=== PATIENT | female | born 2000 | race African-American/Black ===

== ENCOUNTER 2018-07-23 11:35 | Outpatient (CLI) | payer MEDICAID ==
--- NOTE | 2018-07-23 13:06 | Non Stress Test Report ---
Non Stress Test Datetime Report Generated by CPN: 07/23/2018 13:06 DEMOGRAPHIC EGA NST: 34.5 INDICATION Indication for Study: Ordered by Provider MONITORING Monitor Explained: Monitor Explained; Test Explained; Patient Verbalized Understanding Time on Monitor: 07/23/2018 11:46 Time off Monitor: 07/23/2018 12:52 NST Duration: 66 NST INTERVENTIONS NST Interventions: PO Hydration; Meal Given Physician Notified NST: N. Wolff cnm BABY A: [id number] BABY A Movement : Present Contraction Frequency : none FHR Baseline : 125 Accelerations : 15X15 Decelerations : None Variability : Moderate 6-25bpm NST Review: Meets Criteria for Reactive NST NST Review and Verified By : SHANNEN Persaud NST Results: Reactive NST REPORT Report Trigger: Send Report
== END 2018-07-23 13:06 | disposition home or self-care (01) ==
LOC: LC 11:35
PROVIDERS: ATTEND Obstetrics & Gynecology
DX: Z34.83 Encounter for supervision of other normal pregnancy, third trimester (principal)
CPT/HCPCS: 59025

== ENCOUNTER 2018-07-30 11:29 | Outpatient (CLI) | payer MEDICAID ==
--- NOTE | 2018-07-30 14:22 | RADIOLOGY REPORT (SQ) ---
EXAM DESCRIPTION: U/S PROFILE W/O STRESS COMPLETED DATE/TIME: 07/30/2018 2:01 pm REASON FOR STUDY: nonreactive NST COMPARISON: None. TECHNIQUE: Limited holm-scale realtime and static images of the fetus to measure specified parameter s. LIMITATIONS: None. FINDINGS: HEART RATE: 137 beats per minute. TIEN: 16.0 cm. BREATHING MOVEMENT: 2 points. MOVEMENT: 2 points. POSTURE AND TONE: 2 points. QUALITATIVE TIEN: 2 points. OTHER: Cephalic presentation. IMPRESSION: BIOPHYSICAL PROFILE: 11/27. Trimester of : Third - 28 weeks to delivery COMMENT: BREATHING MOVEMENTS: 2 POINTS: PRESENT 0 POINTS: ABSENT MOTION: 2 POINTS: PRESENT 0 POINTS: ABSENT TONE: 2 POINTS: PRESENT 0 POINTS: ABSENT AMNIOTIC FLUID VOLUME: 2 POINTS: LARGEST POCKET GREATER THAN 2 CM DEPTH. 0 POINTS: NO POCKET OF 2 CM. TECHNICAL DOCUMENTATION: JOB ID: [id number] [employer]- All Rights Reserved Reading location - IP/workstation name: [email or web address]
--- NOTE | 2018-07-30 14:25 | Non Stress Test Report ---
Non Stress Test Datetime Report Generated by CPN: 07/30/2018 14:24 DEMOGRAPHIC Test Number: 2 EGA NST: 35.5 INDICATION Indication for Study: Ordered by Provider MONITORING Monitor Explained: Monitor Explained; Test Explained; Patient Verbalized Understanding Time on Monitor: 07/30/2018 11:40 Time off Monitor: 07/30/2018 13:13 NST Duration: 93 NST INTERVENTIONS NST Interventions: None Physician Notified NST: C. Edwards,CNM BABY A: [id number] BABY A Movement : Present Contraction Frequency : none FHR Baseline : 130 Accelerations : 15X15 Decelerations : None Variability : Moderate 6-25bpm NST Review: Does Not Meet Criteria for Reactive NST NST Review and Verified By : SHANNEN Saucedo Results: Non-Reactive NST COMMENTS NST Comments: patient sent for BPP 8/8 NST REPORT Report Trigger: Send Report
== END 2018-07-30 14:20 | disposition home or self-care (01) ==
LOC: LC 11:29
PROVIDERS: ATTEND Obstetrics & Gynecology
PROC: 4A1HXCZ Monitoring of Products of Conception, Cardiac Rate, External Approach (ICD-10-PCS; principal; 2018-07-30)
DX: Z34.93 Encounter for supervision of normal pregnancy, unspecified, third trimester (principal)
CPT/HCPCS: 59025; 76819

== ENCOUNTER 2018-08-07 11:39 | Outpatient (CLI) | payer MEDICAID ==
--- NOTE | 2018-08-07 15:52 | RADIOLOGY REPORT (SQ) ---
EXAM DESCRIPTION: U/S PROFILE W/O STRESS COMPLETED DATE/TIME: 08/07/2018 3:37 pm REASON FOR STUDY: Non reactive NST COMPARISON: 07/30/2018 TECHNIQUE: Limited holm-scale realtime and static images of the fetus to measure specified parameter s. LIMITATIONS: None. FINDINGS: HEART RATE: 143 beats per minute. TIEN: 14.4 cm. BREATHING MOVEMENT: 2 points. MOVEMENT: 2 points. POSTURE AND TONE: 2 points. QUALITATIVE TIEN: 2 points. OTHER: No other significant finding. IMPRESSION: BIOPHYSICAL PROFILE: 11/27. Trimester of : Third - 28 weeks to delivery COMMENT: BREATHING MOVEMENTS: 2 POINTS: PRESENT 0 POINTS: ABSENT MOTION: 2 POINTS: PRESENT 0 POINTS: ABSENT TONE: 2 POINTS: PRESENT 0 POINTS: ABSENT AMNIOTIC FLUID VOLUME: 2 POINTS: LARGEST POCKET GREATER THAN 2 CM DEPTH. 0 POINTS: NO POCKET OF 2 CM. TECHNICAL DOCUMENTATION: JOB ID: [id number] [employer]- All Rights Reserved Reading location - IP/workstation name: [email or web address]
== END 2018-08-07 16:07 | disposition home or self-care (01) ==
LOC: LC 11:39
PROVIDERS: ATTEND Obstetrics & Gynecology
PROC: 4A1HXCZ Monitoring of Products of Conception, Cardiac Rate, External Approach (ICD-10-PCS; principal; 2018-08-07)
DX: Z36.89 Encounter for other specified antenatal screening (principal); Z3A.36 36 weeks gestation of pregnancy
CPT/HCPCS: 59025; 76819

== ENCOUNTER 2018-08-14 11:54 | Outpatient (CLI) | payer MEDICAID ==
--- NOTE | 2018-08-14 13:01 | Non Stress Test Report ---
Non Stress Test Datetime Report Generated by CPN: 08/14/2018 13:01 DEMOGRAPHIC EGA NST: 37.6 INDICATION Indication for Study: Decreased Movement Indication for Study (NST) Other: repeat from the office VITAL SIGNS Temperature - NST: 99.2 Pulse - NST: 77 RESP - NST: 15 NBPSYS NST: 116 NBPDIA NST: 74 MONITORING Monitor Explained: Monitor Explained; Test Explained; Patient Verbalized Understanding Time on Monitor: 08/14/2018 12:21 Time off Monitor: 08/14/2018 12:57 NST Duration: 36 NST INTERVENTIONS NST Interventions: PO Hydration; Reposition Patient Physician Notified NST: Dr Todd BABY A Contraction Frequency : intermittent FHR Baseline : 130 Accelerations : 15X15 Decelerations : None Variability : Moderate 6-25bpm NST Review: Meets Criteria for Reactive NST NST Review and Verified By : Sasha Camp RNC NST Results: Reactive NST REPORT Report Trigger: Send Report
== END 2018-08-14 13:00 | disposition home or self-care (01) ==
LOC: LC 11:54
PROVIDERS: ATTEND Obstetrics & Gynecology Gynecology
PROC: 4A1HXCZ Monitoring of Products of Conception, Cardiac Rate, External Approach (ICD-10-PCS; principal; 2018-08-14)
DX: O36.8130 Decreased fetal movements, third trimester, not applicable or unspecified (principal); Z3A.37 37 weeks gestation of pregnancy
CPT/HCPCS: 59025

== ENCOUNTER 2018-08-21 22:25 | Inpatient (IN) | payer MEDICAID ==
[2018-08-21] MEDS ORDERED: ACETAMINOPHEN 325 MG TABLET PO PRN (22:59)
[2018-08-21] MEDS ORDERED: MAG HYDROX/AL HYDROX/SIMETH SUSP 30 ML UDCUP PO PRN (22:59)
[2018-08-21 23:14] LABS: APPEARANCE,URINE CLEAR; BILIRUBIN,URINE NEGATIVE (NEGATIVE); COLOR,URINE YELLOW; GLUCOSE, URINE NEGATIVE (NEGATIVE); KETONES,URINE NEGATIVE (NEGATIVE); LEUKOCYTE ESTERASE,URINE NEGATIVE (NEGATIVE); NITRITE,URINE NEGATIVE (NEGATIVE); PROTEIN,URINE NEGATIVE (NEGATIVE); URINE SPECIFIC GRAVITY 1.014; UROBILINOGEN,URINE NEGATIVE mg/dL (<2.0)
[2018-08-21 23:32] LABS: URINE AMPHETAMINES SCREEN NEGATIVE; URINE BARBITURATES SCREEN NEGATIVE; URINE BENZODIAZEPINES SCREEN NEGATIVE; URINE COCAINE SCREEN NEGATIVE; URINE MARIJUANA (THC) SCREEN NEGATIVE; URINE METHADONE SCREEN NEGATIVE; URINE PHENCYCLIDINE SCREEN NEGATIVE
[2018-08-21 23:49] LABS: ABSOLUTE EOSINOPHILS # (AUTO) 0.2 10^3/uL (0.0-0.6); ABSOLUTE LYMPHOCYTES (AUTO) 2.6 10^3/uL (0.5-4.7); ABSOLUTE MONOCYTES (AUTO) 1.3 10^3/uL (0.1-1.4); BASOPHILS % (AUTO) 0.2 % (0-2); EOSINOPHILS % (AUTO) 2.3 % (0-6); HEMATOCRIT 26.2 % (36.0-47.0); HEMOGLOBIN 8.3 g/dL (12.0-15.5); LYMPHOCYTES % (AUTO) 25.7 % (13-45); MEAN CORPUSCULAR HGB CONC 31.6 g/dL (32.0-36.0); MEAN CORPUSCULAR VOLUME 67 fl (80-97); MONOCYTES % (AUTO) 12.8 % (3-13); PLATELET COUNT 211 10^3/uL (150-450); RED BLOOD COUNT 3.93 10^6/uL (3.72-5.28); RED CELL DISTRIBUTION WIDTH 15.4 % (11.5-14.0); TOTAL CELLS COUNTED % (AUTO) 100 %; WHITE BLOOD COUNT 10.2 10^3/uL (4.0-10.5)
[2018-08-21] MEDS ORDERED: DINOPROSTONE 10 MG VAGINAL INSERT.SR PV ONE (23:50)
[2018-08-21] MEDS ORDERED: RINGERS SOLUTION,LACTATED 300 ML IV ONE (23:59)
[2018-08-22] MEDS: RINGERS SOLUTION,LACTATED 1,000 ML IV PRN ×2 (02:28→18:34)
[2018-08-22] MEDS ORDERED: DINOPROSTONE 10 MG VAGINAL INSERT.SR ONE (03:26)
--- NOTE | 2018-08-22 04:16 | Admission Physical ---
Datetime Report Generated by CPN: 08/22/2018 04:15 CURRENT ADMISSION Chief Complaint: Scheduled Induction of Labor Indication for Induction: Maternal Diabetes Admit Impression : Term, Intrauterine ; No Active Labor; Intact Membranes Admit Plan: Admit to Unit; Initiate Labor Induction Protocol ALLERGIES Medication Allergies: No Medication Allergies: No Known Allergies (08/22/2018) Latex: No Latex Allergies Food Allergies: No known allergies Environmental Allergies: No known allergies OBSTETRICAL HISTORY EDC: 08/29/2018 00:00 : 2 Para: 0 Gestational Diabetes: Yes Rh Sensitization: No Incompetent Cervix: No BAILEE: No Infertility: No ART Treatment: No Uterine Anomaly: No IUGR: No Hx Previous C/S: No Macrosomia: No Hx Loss/Stillborn: No PIH: No Hx : No Placenta Previa/Abruption: No Depression/PP Depression: No PTL/PROM: No Post Hemorrhage: No Current Procedures: Ultrasound; NST Obstetrical History Comments: G1 - SAB during teens? (pt denies) G2 - Current , GDM SEE RECORDS Alcohol: No Marijuana : No Cocaine: No Other Illicit Drugs: No Cigarettes: Never Smoker. [id number] MEDICAL HISTORY Diabetes: No Diabetes Type: Gestational Diabetes Blood Transfusion: No Pulmonary Disease (Asthma, TB): No Breast Disease: No Hypertension: No Safety Sealer Surgery: No Heart Disease: No Hosp/Surgery: No Autoimmune Disorder: No Anesthetic Complications: No Kidney Disease: No Abnormal Pap Smear: No Neuro/Epilepsy: No Psychiatric Disorders: No Other Medical Diseases: No Hepatitis/Liver Disease: No Significant Family History: No Varicosities/Phlebitis: No Trauma/Violence : No Thyroid Dysfunction: No INFECTIOUS HISTORY Gonorrhea: No Genital Herpes: No Chlamydia: Yes Tuberculosis: No Syphilis: No Hepatitis: No HIV/AIDS Exposure: No Rash or Viral Illness: No HPV: No Infectious History Comments: Chlamydia - 2017, treated w/ abx PHYSICAL EXAM General: Normal HEENT: Normal Neurologic: Normal Thyroid: Normal Heart: Normal Lungs: Normal Breast: Normal Back: Normal Abdomen: Normal Genitourinary Exam: Normal Extremities: Normal DTRs: Normal Pelvic Type: Adequate Vital Signs: Reviewed; Within Normal Limits VAGINAL EXAM Dilatation: closed Effacement: thick Station: -3 Contraction Comments: irregular MEMBRANES Membranes: Intact FETUS A EGA: 39.0 Monitoring: External US FHR- Baseline: 120s Variability: Moderate 6-25bpm Accelerations: 15X15 Decelerations: None FHR Category: Category I Admit Comment: This G1 presents to L_D for a scheduled IOL secondary to GDM--on Glyburide. She is GBS Negative. PLANS FOR LABOR AND DELIVERY Labor and Delivery: None Pain Management: Epidural Feeding Preference: Formula Benefit of Breast Feed Discussed: Yes Circumcision: Yes INFORMED CONSENT Signature: with User ID: [email or web address]
[2018-08-22] MEDS ORDERED: ZOLPIDEM TARTRATE 5 MG TABLET ONE (05:08)
[2018-08-22] MEDS: ZOLPIDEM TARTRATE 5 MG TABLET PO PRN (05:12)
[2018-08-22] MEDS ORDERED: NALBUPHINE HCL INJ 10 MG/1 ML AMPULE INJ ONE (17:32)
[2018-08-22] MEDS ORDERED: OXYTOCIN/NORMAL SALINE 20 UNIT/1,000 ML RTUINJ IV PRN (17:32)
[2018-08-22] MEDS ORDERED: NALBUPHINE HCL INJ 10 MG/1 ML AMPULE ONE (17:38)
[2018-08-22] MEDS ORDERED: LIDOCAINE 1% INJ-PF (10 MG/ML) 30 ML SDV ONE (18:44)
[2018-08-22] MEDS ORDERED: MISOPROSTOL 0.2 MG TABLET ONE (18:44)
[2018-08-22] MEDS ORDERED: OXYTOCIN/NORMAL SALINE 20 UNIT/1,000 ML RTUINJ ONE (18:45)
[2018-08-22] MEDS ORDERED: EPHEDRINE SULFATE INJ 50 MG/1 ML AMPULE ONE (23:05)
[2018-08-22] MEDS ORDERED: BUPIVACAINE HCL 0.25 % INJ/PF (2.5 MG/1 ML) 30 ML VIAL ONE (23:06)
[2018-08-22] MEDS ORDERED: FENTANYL/BUPIVACAINE/NS/PF 300 MCG/150 ML RTUINJ EPI ONE (23:06)
[2018-08-23] MEDS ORDERED: ZOLPIDEM TARTRATE 5 MG TABLET ONE (03:06)
[2018-08-23] MEDS: ZOLPIDEM TARTRATE 5 MG TABLET PO PRN (03:08)
[2018-08-23] MEDS: RINGERS SOLUTION,LACTATED 1,000 ML IV PRN ×3 (03:09→14:06)
[2018-08-23] MEDS ORDERED: OXYTOCIN/NORMAL SALINE 20 UNIT/1,000 ML RTUINJ IV PRN (10:01)
[2018-08-23] MEDS ORDERED: FENTANYL/BUPIVACAINE/NS/PF 300 MCG/150 ML RTUINJ EPI ONE ×2 (14:01→19:48)
[2018-08-23] MEDS ORDERED: OXYTOCIN/NORMAL SALINE 20 UNIT/1,000 ML RTUINJ ONE (20:17)
[2018-08-24 09:28] LABS: ABSOLUTE EOSINOPHILS # (AUTO) 0.1 10^3/uL (0.0-0.6); ABSOLUTE LYMPHOCYTES (AUTO) 1.5 10^3/uL (0.5-4.7); ABSOLUTE MONOCYTES (AUTO) 1.1 10^3/uL (0.1-1.4); ABSOLUTE NEUT (AUTO) 9.9 10^3/uL (1.7-8.2); BASOPHILS % (AUTO) 0.1 % (0-2); EOSINOPHILS % (AUTO) 0.8 % (0-6); LYMPHOCYTES % (AUTO) 11.6 % (13-45); MEAN CORPUSCULAR HEMOGLOBIN 20.6 pg (27.0-33.4); MEAN CORPUSCULAR HGB CONC 30.9 g/dL (32.0-36.0); MEAN CORPUSCULAR VOLUME 67 fl (80-97); MONOCYTES % (AUTO) 8.7 % (3-13); PLATELET COUNT 189 10^3/uL (150-450); RED CELL DISTRIBUTION WIDTH 15.2 % (11.5-14.0); SEGMENTED NEUTROPHILS % (AUTO) 78.8 % (42-78); TOTAL CELLS COUNTED % (AUTO) 100 %; WHITE BLOOD COUNT 12.5 10^3/uL (4.0-10.5)
[2018-08-24] MEDS ORDERED: LIDOCAINE 2% INJ-PF (20 MG/ML) 10 ML AMPUL ONE (09:30)
[2018-08-24] MEDS ORDERED: CITRIC ACID/SODIUM CITRATE ORAL SOLN 15 ML UDCUP ONE (09:30)
[2018-08-24] MEDS ORDERED: CEFAZOLIN 2 GM/D5W RTU 2 GM/50 ML RTUPB IV ONE (09:31)
[2018-08-24] MEDS ORDERED: BUPIVACAINE HCL 0.5 % INJ/PF 30 ML SDV ONE (09:31)
[2018-08-24] MEDS ORDERED: OXYTOCIN/NORMAL SALINE 20 UNIT/1,000 ML RTUINJ ONE (09:31)
[2018-08-24] MEDS ORDERED: CARBOPROST TROMETHAMINE INJ 250 MCG/1 ML AMPULE ONE (09:31)
[2018-08-24] MEDS ORDERED: CEFAZOLIN SODIUM 2 GM in DEXTROSE 5%-WATER 50 ML IV PRN (09:33)
[2018-08-24] MEDS ORDERED: NORMAL SALINE 250 ML IV PRN (09:43)
[2018-08-24 09:45] LABS: ALANINE AMINOTRANSFERASE 19 U/L (5-35); ALBUMIN 2.5 g/dL (3.7-5.6); ALKALINE PHOSPHATASE 203 U/L (50-135); ANION GAP 10 (5-19); ASPARTATE AMINO TRANSFERASE 15 U/L (5-30); BILIRUBIN,DIRECT 0.3 mg/dL (0.0-0.4); BILIRUBIN,TOTAL 0.4 mg/dL (0.2-1.3); BLOOD UREA NITROGEN 5 mg/dL (7-20); CALCIUM 8.6 mg/dL (8.4-10.2); CARBON DIOXIDE 21 mmol/L (22-30); CHLORIDE 107 mmol/L (98-107); GLUCOSE 123 mg/dL (75-110); POTASSIUM 3.5 mmol/L (3.6-5.0); SODIUM 138.2 mmol/L (137-145); TOTAL PROTEIN 5.3 g/dL (6.3-8.2); URIC ACID 5.2 mg/dL (2.5-6.2)
[2018-08-24] MEDS ORDERED: PHENYLEPHRINE HCL INJ/PF 10 MG/1 ML SDV ONE (09:48)
[2018-08-24] MEDS ORDERED: MIDAZOLAM 2 MG/2 ML INJ ONE ×2 (09:48→10:38)
[2018-08-24] MEDS ORDERED: ONDANSETRON HCL INJ/PF 4 MG/2 ML SDV ONE (09:48)
[2018-08-24] MEDS ORDERED: OXYTOCIN 10 UNIT/ML VIAL ONE (09:48)
[2018-08-24 10:04] LABS: IRON(TIBC) 49.4 ug/dL (37-170)
[2018-08-24 10:26] LABS: ABSOLUTE RETICS # 0.074 10^6/uL (0.028-0.122); RETICULOCYTE COUNT (AUTO) 1.88 % (0.66-2.85)
[2018-08-24] MEDS ORDERED: FENTANYL CITRATE INJ/PF 100 MCG/2 ML AMPUL ONE (10:38)
[2018-08-24 10:51] LABS: FERRITIN 9.96 ng/mL (6.2-137.0)
[2018-08-24] MEDS ORDERED: PROPOFOL INJ 200 MG/20 ML VIAL IV ONE (10:52)
[2018-08-24] MEDS ORDERED: ACETAMINOPHEN 325 MG TABLET PO PRN (11:23)
[2018-08-24] MEDS ORDERED: ACETAMINOPHEN 1,000 MG/100 ML RTUPB IV PRN (11:23)
[2018-08-24] MEDS ORDERED: MEASLES,MUMPS&RUBELLA VACC/PF 0.5 ML VIAL SUBCUT PRN (11:23)
[2018-08-24] MEDS ORDERED: OXYTOCIN/NORMAL SALINE 20 UNIT/1,000 ML RTUINJ IV PRN (11:23)
[2018-08-24] MEDS ORDERED: DIPH/PERTUSS(ACELL)/TETANUS VAC/PF 0.5 ML SYR (>=10YO) IM PRN (11:23)
[2018-08-24] MEDS ORDERED: PROMETHAZINE HCL INJ 25 MG/1 ML VIAL IV PRN (11:23)
[2018-08-24] MEDS ORDERED: SIMETHICONE 80 MG TAB.CHEW PO PRN (11:23)
[2018-08-24] MEDS ORDERED: OXYCODONE-ACETAMINOPHEN 5-325 MG TABLET PO PRN (11:23)
[2018-08-24] MEDS ORDERED: MISOPROSTOL 0.1 MG TABLET PR ONE (11:44)
[2018-08-24] MEDS ORDERED: CARBOPROST TROMETHAMINE INJ 250 MCG/1 ML AMPULE IM ONE (11:44)
--- NOTE | 2018-08-24 11:46 | Brief Operative Note ---
BRIEF OPERATIVE REPORT DATE OF SURGERY: 08/24/18 TIME OF SURGERY: 10:35 PREOPERATIVE DIAGNOSIS: , 39+2ega, Failed Induction of labor, Arrest of Dilation, A pos, Anemia during , GBS negative POSTOPERATIVE DIAGNOSIS: KATIE, Macrosomia, hemorrhage due to uterine atony SURGEON: TRELL RAMIREZ FINDINGS: VMI delivered from cephalic presentation with asynclitism, Apgars 7/8, Weight 8#15oz (3990g). Time of 1035, IVF 1500ml, UOP 300ml. Normal bilateral tubes and ovaries, Hemabate 250mcg given intrauterine, Pitocin 20 units added to IV bag (total 40 units in 1 liter), Cytotec 1000mcg given [place] for uterine atony. WIll transfuse 1 unit of PRBCs and eval response COMPLICATIONS: uterine atony ESTIMATED BLOOD LOSS: 1157 TISSUE REMOVED OR ALTERED: placenta and cord sent to pathology TECHNICAL PROCEDURE: Primary Section
[2018-08-24] MEDS ORDERED: KETOROLAC TROMETHAMINE INJ/PF 30 MG/1 ML SDV ONE (12:07)
[2018-08-24] MEDS ORDERED: ACETAMINOPHEN 1,000 MG/100 ML RTUPB IV ONE (12:08)
[2018-08-24] MEDS: KETOROLAC TROMETHAMINE INJ/PF 30 MG/1 ML SDV IV SCH ×2 (12:27→20:16)
[2018-08-24] MEDS ORDERED: HYDROMORPHONE HCL INJ/PF 2 MG/ML AMPULE ONE (12:37)
[2018-08-24] MEDS: HYDROMORPHONE HCL INJ/PF 2 MG/ML AMPULE IV PRN ×2 (12:37→16:21)
--- NOTE | 2018-08-24 18:49 | Operative Report ---
Operative Report DATE OF SURGERY: 08/24/18 PREOPERATIVE DIAGNOSIS: , 39+2ega, Failed Induction of labor, Arrest of Dilation, A pos, Anemia during , GBS negative, A2GDM POSTOPERATIVE DIAGNOSIS: KATIE, Macrosomia, hemorrhage due to uterine atony OPERATION: Primary Section SURGEON: TRELL RAMIREZ ANESTHESIA: Epidural TISSUE REMOVED OR ALTERED: placenta and cord sent to pathology COMPLICATIONS: uterine atony ESTIMATED BLOOD LOSS: 1157 INTRAOPERATIVE FINDINGS: VMI delivered from cephalic presentation with asynclitism, Apgars 7/8, Weight 8#15oz (3990g). Time of 1035, IVF 1500ml, UOP 300ml. Normal bilateral tubes and ovaries, Hemabate 250mcg given intrauterine, Pitocin 20 units added to IV bag (total 40 units in 1 liter), Cytotec 1000mcg given [place] for uterine atony. WIll transfuse 1 unit of PRBCs and eval response PROCEDURE: Anesthesia provider: [Marta ESPINO, Ministerio Mathews CRNA] Urine output: [300ml] IV fluids: [1500ml] Indications: [17yo at 39+2eg presents for IOL due to A2GDM on Glyburide who was admitted for cervidil at approximately 0300 on 08/22/2018. Cervidil was removed that afternoon at approximately 1500 and then Cooks catheter was placed at approximately 1830 and pitocin initiated. ] Procedure: The patient was taken to the operating room where spinal anesthesia was obtained and found to be adequate. She was then prepped and draped in the normal sterile fashion and placed in the dorsal supine position with a leftward tilt. A Pfannenstiel skin incision was then made and carried through to the underlying layers of the fascia with the scalpel. The fascia was incised in the midline and the incision extended laterally with the Noriega scissors. The superior aspect of the fascial incision was then grasped with Rigo clamps elevated and the underlying rectus muscles dissected off [bluntly]. Attention was then turned to the inferior aspect of the fascial incision which in a similar fashion was grasped, tented up with Yaneli clamps, and the rectus muscles dissected off [bluntly]. The rectus muscles were then in the midline and the peritoneum at the amount identified and entered [bluntly]. The peritoneal incision was then extended superiorly and inferiorly with good visualization of the bladder. The bladder blade was inserted and the vesicouterine peritoneum identified grasped with Brazilian pickups and entered sharply with the Metzenbaum scissors. This incision was then extended laterally with the Metzenbaum scissors and a bladder flap created digitally. The bladder blade was then reinserted and the lower uterine segment incised in a transverse fashion with the scalpel. The uterine incision was then extended bluntly. The bladder blade was removed and the 's head was delivered from cephalic presentation atraumatically. The nose and mouth were suctioned and the cord doubly clamped and cut. And the was handed off to waiting pediatricians. The placenta was then delivered spontaneously and the uterus exteriorized and cleared of all clots and debris. The uterine incision was then repaired with 1- 0 Vicryl in a running locked fashion. A second layer of the same suture was used to obtain hemostasis via imbrication of the initial layer. The bladder flap was then repaired with 3-0 chromic in a running fashion. The uterus was returned to the patient's abdomen and Interceed was placed overlying the uterine incision to prevent adhesions. The gutters were cleared of all clots and debris. All operative sites were noted to be hemostatic. The fascia was reapproximated with 0 Vicryl in a running fashion from each lateral edge to the midline. The skin was closed with 3-0 Monocryl in a running subcuticular fashion with overlying Dermabond for additional dressing as well as wound closure. The patient tolerated the procedure well. Sponge lap needle and instrument counts are correct -2. 2 g of Ancef were given prior to skin incision. The patient was taken to the recovery area awake and in stable condition.
[2018-08-24] MEDS ORDERED: NIFEDIPINE 30 MG TAB.ER.24 PO ONE (19:00)
[2018-08-24] MEDS: DOCUSATE SODIUM 100 MG CAPSULE PO SCH (20:19)
[2018-08-24] MEDS: OXYCODONE-ACETAMINOPHEN 5-325 MG TABLET PO PRN (21:30)
[2018-08-25] MEDS: HYDROMORPHONE HCL INJ/PF 2 MG/ML AMPULE IV PRN (00:45)
[2018-08-25] MEDS: KETOROLAC TROMETHAMINE INJ/PF 30 MG/1 ML SDV IV SCH (03:42)
[2018-08-25 07:22] LABS: HEMATOCRIT 22.7 % (36.0-47.0); MEAN CORPUSCULAR HEMOGLOBIN 22.1 pg (27.0-33.4); MEAN CORPUSCULAR HGB CONC 31.9 g/dL (32.0-36.0); MEAN CORPUSCULAR VOLUME 69 fl (80-97); PLATELET COUNT 169 10^3/uL (150-450); RED BLOOD COUNT 3.29 10^6/uL (3.72-5.28); RED CELL DISTRIBUTION WIDTH 17.7 % (11.5-14.0); WHITE BLOOD COUNT 14.1 10^3/uL (4.0-10.5)
[2018-08-25 07:25] LABS: HEMOGLOBIN 7.2 g/dL (12.0-15.5)
[2018-08-25] MEDS: IBUPROFEN 800 MG TABLET PO SCH ×3 (09:18→20:36)
[2018-08-25] MEDS: DOCUSATE SODIUM 100 MG CAPSULE PO SCH ×2 (09:18→18:08)
[2018-08-25] MEDS: NIFEDIPINE 30 MG TAB.ER.24 PO SCH (09:19)
[2018-08-25] MEDS: PRENATAL VITAMIN W DHA CAPSULE PO SCH (09:27)
--- NOTE | 2018-08-25 11:08 | Delivery Summary ---
Del Sum A-C Datetime Report Generated by CPN: 08/25/2018 11:07 DELIVERY PERSONNEL DELIVERY PERSONNEL: [id number] Delivery Doctor:: Una Escalona MD Delivery Doctor:: Una Escalona MD Anesthesiologist:: Sean Lozano MD RIB CHOPPER:: Ministerio Mathews CRNA Labor and Delivery Nurse:: Monica Mercado RN Labor and Delivery Nurse:: Sharon Wells RN Tree And Shrub Worker:: Monica Mercado RN Hotel Reservationist:: Dr. Jaramillo [facility] Nurse:: Rey KUMAR RN Production Team Leader/EQUIPMENT INSPECTOR: Cate Ferrell ST Production Team Leader/EQUIPMENT INSPECTOR: Cate Ferrell ST Production Team Leader/EQUIPMENT INSPECTOR: Brenden Olivas RN Production Team Leader/EQUIPMENT INSPECTOR: Brenden Olivas, TOLL TEST WORKER MATERNAL INFORMATION Delivery Anesthesia: Epidural Medications After Delivery: Pitocin Drip 20 Units/1000ml NSS Meds After Delivery Comment: Hemabate Maternal Complications: Other Complication Details: Failed Induction LABOR SUMMARY EDC: 08/29/2018 00:00 No. Babies in Womb: 1 Attempted: No Labor Anesthesia: Epidural LABOR INFORMATION Reason for Induction: Maternal Diabetes Cervical Ripening Agents: Cervidil; Jett Balloon Oxytocin: Induction Group B Beta Strep: Negative Antibiotics # of Doses: 0 Steroids Given: None Reason Steroids Not Administered: Not Applicable MEMBRANES Membranes Rupture Method: Artificial Amniotic Fluid Color: Clear Amniotic Fluid Amount: Moderate Amniotic Fluid Odor: Normal STAGES OF LABOR Stage 3 hr: 0 Stage 3 min: 1 CSECTION DELIVERY Primary Indication: Failed Induction CSection Urgency: Non-Scheduled CSection Incidence: Primary Labor: No Labor Elective: Nonelective CSection Incision: Lower Uterine Transverse BABY A INFORMATION Delivery Date/Time: 08/24/2018 10:35 Method of Delivery: Born in Route : No : N/A Forceps: N/A Vacuum Extraction: N/A Shoulder Dystocia : No PRESENTATION/POSITION BABY A Presentation: Cephalic Cephalic Presentation: Vertex Breech Presentation: N/A PLACENTA INFORMATION BABY A Placenta Delivery Time : 08/24/2018 10:36 Placenta Method of Delivery: Manual Removal Placenta Status: Delivered SCORES BABY A Heart Rate 1 min: >100 bpm Resp Effort 1 min: Good Cry Reflex Irritability 1 min: Cough or Sneeze or Pulls Away Muscle Tone 1 min: Some Flexion of Extremities Color 1 min: Blue/Pale Resuscitation Effort 1 min: Tactile Stimulation SCORE 1 MIN: 7 Heart Rate 5 min: >100 bpm Resp Effort 5 min: Good Cry Reflex Irritability 5 min: Cough or Sneeze or Pulls Away Muscle Tone 5 min: Some Flexion of Extremities Color 5 min: Body [place], Extremities Blue SCORE 5 MIN: 8 INFORMATION BABY A Gestational Age at Delivery: 39.2 Gestational Status: Full Term- 39- 40.6 Weeks Outcome : Liveborn Infant Condition : Stable Infant Sex: Male IDENTIFICATION BABY A Infant Verification Date/Time: 08/24/2018 11:12 ID Band Number: [id number] Mother's Name Verified: Yes RN Verifying : Pam Wells RN and Oracio Mercado RN WEIGHT/LENGTH BABY A Birthweight (gm): 3990 Infant Weight (lb): 8 Infant Weight (oz): 13 Infant Length (in): 20.50 Infant Length (cm): 52.07 CORD INFORMATION BABY A No. Cord Vessels: 3 Nuchal Cord : N/A Cord Blood Taken: Yes-For Storage (Mom's Blood type +) Suction: None ASSESSMENT BABY A Complications: None Physical Findings at Delivery: Caput Succedaneum; Molding of the Head Infant Respirations: Tachypnea Skin to Skin: Yes (Annotations: IN OR) Hotel Reservationist/ALS Called : Yes Infant Care By: Rey KUMAR RN Transferred To: NICU
--- NOTE | 2018-08-25 11:45 | PDOC PROGRESS REPORT ---
Subjective-OB Progress Note for:: 08/25/18 Subjective: reports bleeding slowing, pain controlled with current meds. denies needs. Physical Exam (OB) Vital Signs: Temp Pulse Resp BP Pulse Ox 98.8 F 96 H 20 130/82 H 100 08/25/18 07:37 08/25/18 07:37 08/25/18 07:37 08/25/18 07:37 08/25/18 07:37 Intake & Output 08/24/18 08/25/18 08/26/18 06:59 06:59 06:59 Intake Total 1367 650 Output Total 3100 Balance 1367 -2450 - Dressing Removed: No Incision: Dressing, Well Approximated - Abdomen Description: Soft Hernia Present: No Fundal Description: Firm Fundal Height: u/u - u/2 - Abdominal Distension: No distension Tenderness: Tender - Extremities Lower extremities: Jaron's sign - neg Calf: Normal, Nontender Objective-Diagnostic Laboratory: 08/25/18 06:55 08/24/18 08:49 08/24/18 08/25/18 10:08 06:55 WBC 14.1 H RBC 3.29 L Hgb 7.2 L Hct 22.7 L MCV 69 L MCH 22.1 L MCHC 31.9 L RDW 17.7 H Plt Count 169 Blood Type A POSITIVE Antibody Screen NEGATIVE Assessment and Plan(PN) - Assessment and Plan (1) Arrest of dilation, delivered, current hospitalization Is this a current diagnosis for this admission?: Yes (2) hemorrhage, delivered, current hospitalization Is this a current diagnosis for this admission?: Yes (3) S/P primary low transverse Is this a current diagnosis for this admission?: Yes - Time Spent with Patient Time with patient: Less than 15 minutes Medications reviewed and adjusted accordingly: Yes - Disposition Anticipated Discharge: Home Within: within 48 hours
[2018-08-25] MEDS: OXYCODONE-ACETAMINOPHEN 5-325 MG TABLET PO PRN (15:57)
--- NOTE | 2018-08-25 16:32 | Progress Note ---
Provider Note Provider Note: on rounds, pt denied sx of anemia-no dizziness, heart palpitations, headache, ringing in the ears. declines blood transfusion.
[2018-08-26] MEDS: IBUPROFEN 800 MG TABLET PO SCH ×2 (02:33→09:05)
[2018-08-26] MEDS: DOCUSATE SODIUM 100 MG CAPSULE PO SCH (09:04)
[2018-08-26] MEDS: PRENATAL VITAMIN W DHA CAPSULE PO SCH (09:04)
[2018-08-26] MEDS: NIFEDIPINE 30 MG TAB.ER.24 PO SCH (09:05)
--- NOTE | 2018-08-26 13:45 | PDOC DISCHARGE SUMMARY ---
Addendum entered and electronically signed by MARTHA ALONSO CNM 08/26/18 13:49: Assessment and Plan(PN) - Assessment and Plan (1) Anemia affecting in third trimester Is this a current diagnosis for this admission?: Yes (2) Arrest of dilation, delivered, current hospitalization Is this a current diagnosis for this admission?: Yes (3) Failed induction of labor, delivered Is this a current diagnosis for this admission?: Yes (4) Gestational diabetes mellitus (GDM) during controlled on oral hypoglycemic therapy Is this a current diagnosis for this admission?: Yes (5) Macrosomia Is this a current diagnosis for this admission?: Yes (6) hemorrhage, delivered, current hospitalization Is this a current diagnosis for this admission?: Yes (7) hypertension Is this a current diagnosis for this admission?: Yes (8) S/P primary low transverse Is this a current diagnosis for this admission?: Yes (9) Transfusion of blood during current hospitalisation Is this a current diagnosis for this admission?: Yes - Time Spent with Patient Medications reviewed and adjusted accordingly: Yes - Disposition Anticipated Discharge: Home Within: within 24 hours Original Note: Final Diagnosis Discharge Date: 08/26/18 - POD #2, doing well, denies dizziness or SOB, ambulating w/out difficulty. s/p Primary with PPH. Rec'd 1 unit PRBC after delivery. A+, Rubella Immune - Final Diagnosis (1) Anemia affecting in third trimester Is this a current diagnosis for this admission?: Yes (2) Arrest of dilation, delivered, current hospitalization Is this a current diagnosis for this admission?: Yes (3) Failed induction of labor, delivered Is this a current diagnosis for this admission?: Yes (4) Gestational diabetes mellitus (GDM) during controlled on oral hypoglycemic therapy Is this a current diagnosis for this admission?: Yes (5) Macrosomia Is this a current diagnosis for this admission?: Yes (6) hemorrhage, delivered, current hospitalization Is this a current diagnosis for this admission?: Yes (7) hypertension Is this a current diagnosis for this admission?: Yes (8) S/P primary low transverse Is this a current diagnosis for this admission?: Yes (9) Transfusion of blood during current hospitalisation Is this a current diagnosis for this admission?: Yes Discharge Data - Discharge Medication Prescriptions: Ibuprofen [Motrin 800 mg Tablet] 800 mg PO Q8H PRN #60 tablet PRN Reason: Pain Scale Of 2 Oxycodone HCl/Acetaminophen [Percocet 5-325 mg Tablet] 1 tab PO Q4HP PRN #30 tablet PRN Reason: Pain Scale Of 3 Home Medications: Ibuprofen [Motrin 800 mg Tablet] 800 mg PO Q8H PRN #60 tablet 08/26/18 Oxycodone HCl/Acetaminophen [Percocet 5-325 mg Tablet] 1 tab PO Q4HP PRN #30 tablet 08/26/18 Reason(s) for Admission: Induction of Labor, Obstetric Complications, Gestional Diabetes Intrapartum Procedure(s): : Low Cervical, Transverse Complication(s): Hemorrhage-Uterine Atony - Pt given 1 unit PRBC - Diagnosis Test Laboratory: Temp Pulse Resp BP Pulse Ox 98.0 F 97 H 18 123/62 100 08/26/18 13:19 08/26/18 13:19 08/26/18 13:19 08/26/18 13:19 08/26/18 13:19 08/21/18 08/21/18 08/24/18 22:39 23:25 08:49 RBC 3.93 3.90 Hgb 8.3 L 8.0 L Hct 26.2 L 26.0 L Urine Opiates Screen NEGATIVE 08/25/18 06:55 RBC 3.29 L Hgb 7.2 L Hct 22.7 L Urine Opiates Screen - Discharge information/Instructions Discharge Activity: Activity As Tolerated, No Driving, No Lifting Over 10 Pounds, Pelvic Rest Discharge Diet: As Tolerated, Regular Disposition: HOME, SELF-CARE Follow up with: [facility] in: 1, Weeks - for BP and incision check
[2018-08-26 14:06] VITALS: BP 118/64
[2018-08-27] MEDS ORDERED: FERROUS SULFATE 325 MG TABLET PO SCH (10:00)
== END 2018-08-26 15:10 | disposition home or self-care (01) | DRG 787 ==
LOC: LR 22:25 → 2S 08-24 13:40
PROVIDERS: ADMIT Student in an Organized Health Care Education/Training Program; ATTEND Student in an Organized Health Care Education/Training Program
PROC: 10D00Z1 Extraction of Products of Conception, Low, Open Approach (ICD-10-PCS; principal; 2018-08-24)
PROC: 30233N1 Transfusion of Nonautologous Red Blood Cells into Peripheral Vein, Percutaneous Approach (ICD-10-PCS; 2018-08-24)
DX: O24.425 Gestational diabetes mellitus in childbirth, controlled by oral hypoglycemic drugs (principal); O72.1 Other immediate postpartum hemorrhage; O36.63X0 Maternal care for excessive fetal growth, third trimester, not applicable or unspecified; O90.81 Anemia of the puerperium; D64.9 Anemia, unspecified; O62.1 Secondary uterine inertia; O16.5 Unspecified maternal hypertension, complicating the puerperium; Z3A.39 39 weeks gestation of pregnancy; Z37.0 Single live birth
CPT/HCPCS: 1961; 36415; 36430; 80053; 80307; 81005; 82607; 82728; 82746; 82962; 83540; 83550; 83615; 84550; 85025; 85027; 85045; 86592; 86850; 86900; 86901; 86920; 87521; 88307; 94799; C1726; J0131; J0690; J1170; J1885; J2250; J2300; J2370; J2405; J2590; J2704; J3010; J3490; P9016

== ENCOUNTER 2019-04-16 17:59 | Emergency (ER) | payer MEDICAID ==
[2019-04-16] MEDS ORDERED: ALBUTEROL SULFATE 0.083% NEB 2.5 MG/3 ML AMPUL NEB ONE (19:25)
--- NOTE | 2019-04-16 19:27 | ER Document Report ---
ED Medical Screen (RME) - General Chief Complaint: Shortness Of Breath Stated Complaint: SHORTNESS OF BREATH Time Seen by Provider: 04/16/19 19:21 Mode of Arrival: Wheelchair Information source: Patient Notes: 18-year-old female presents emergency department with reports that she has been short of breath coughing with history of asthma for the past 2 weeks.. Also reports vomiting the last couple days. Also reports she is approximately 3 months . She has not had any care. She denies abdominal pain. She denies pain with void. She denies denies vaginal bleeding or vaginal discharge. [facility] I have greeted and performed a rapid initial assessment of this patient. A comprehensive ED assessment and evaluation of the patient, analysis of test results and completion of the medical decision making process will be conducted by additional ED providers. TRAVEL OUTSIDE OF THE [place] IN LAST 30 DAYS: No - Related Data Allergies/Adverse Reactions: No Known Allergies Allergy (Verified 04/16/19 19:26) Physical Exam - Vital signs Vitals: Temp Pulse Resp BP Pulse Ox 99.2 F 101 H 16 113/64 90 L 04/16/19 18:27 04/16/19 18:27 04/16/19 18:27 04/16/19 18:27 04/16/19 18:27 Course - Vital Signs Vital signs: Temp Pulse Resp BP Pulse Ox 99.2 F 101 H 16 113/64 90 L 04/16/19 18:27 04/16/19 18:27 04/16/19 18:27 04/16/19 18:27 04/16/19 18:27
[2019-04-16 20:07] LABS: ABSOLUTE BASOPHILS # (AUTO) 0.1 10^3/uL (0.0-0.2); ABSOLUTE LYMPHOCYTES (AUTO) 3.2 10^3/uL (0.5-4.7); ABSOLUTE MONOCYTES (AUTO) 1.2 10^3/uL (0.1-1.4); ABSOLUTE NEUT (AUTO) 10.9 10^3/uL (1.7-8.2); BASOPHILS % (AUTO) 0.4 % (0-2); EOSINOPHILS % (AUTO) 6.1 % (0-6); HEMATOCRIT 34.4 % (36.0-47.0); HEMOGLOBIN 11.2 g/dL (12.0-15.5); LYMPHOCYTES % (AUTO) 19.3 % (13-45); MEAN CORPUSCULAR HEMOGLOBIN 21.9 pg (27.0-33.4); MEAN CORPUSCULAR HGB CONC 32.5 g/dL (32.0-36.0); MEAN CORPUSCULAR VOLUME 67 fl (80-97); MONOCYTES % (AUTO) 7.2 % (3-13); PLATELET COUNT 278 10^3/uL (150-450); RED BLOOD COUNT 5.12 10^6/uL (3.72-5.28); RED CELL DISTRIBUTION WIDTH 15.2 % (11.5-14.0); TOTAL CELLS COUNTED % (AUTO) 100 %; WHITE BLOOD COUNT 16.4 10^3/uL (4.0-10.5)
--- NOTE | 2019-04-16 20:21 | RADIOLOGY REPORT (SQ) ---
EXAM DESCRIPTION: XR CHEST 2 VIEWS COMPLETED DATE/TME: 04/16/2019 19:26 CLINICAL HISTORY: 18 years Female cough sob COMPARISON: 08/24/2010. FINDINGS: The cardiomediastinal silhouette appears unremarkable. No consolidating infiltrates or pleural effusions. No pneumothorax. IMPRESSION: No acute abnormality is identified.
[2019-04-16 20:26] LABS: A TYPE INFLUENZA AG NEGATIVE (NEGATIVE); B INFLUENZA AG NEGATIVE (NEGATIVE)
[2019-04-16 20:26] LABS: ALBUMIN 3.9 g/dL (3.5-5.0); ALKALINE PHOSPHATASE 75 U/L (38-126); ANION GAP 13 (5-19); ASPARTATE AMINO TRANSFERASE 16 U/L (14-36); BILIRUBIN,DIRECT 0.3 mg/dL (0.0-0.4); BILIRUBIN,TOTAL 0.3 mg/dL (0.2-1.3); BLOOD UREA NITROGEN 4 mg/dL (7-20); CALCIUM 9.8 mg/dL (8.4-10.2); CARBON DIOXIDE 21 mmol/L (22-30); CHLORIDE 104 mmol/L (98-107); GLUCOSE 88 mg/dL (75-110); POTASSIUM 3.5 mmol/L (3.6-5.0); TOTAL PROTEIN 7.2 g/dL (6.3-8.2)
[2019-04-16 21:30] LABS: APPEARANCE,URINE CLEAR; BILIRUBIN,URINE NEGATIVE (NEGATIVE); COLOR,URINE YELLOW; GLUCOSE, URINE NEGATIVE (NEGATIVE); KETONES,URINE 80 mg/dL (NEGATIVE); PROTEIN,URINE 30 mg/dL (NEGATIVE); URINE SPECIFIC GRAVITY 1.017
[2019-04-17] MEDS ORDERED: IPRATROPIUM/ALBUTEROL 0.5-2.5 MG/3 ML AMPUL NEB ONE ×2 (01:20→01:22)
[2019-04-17] MEDS ORDERED: NORMAL SALINE 1000 ML 1,000 ML IV ONE (01:22)
[2019-04-17] MEDS ORDERED: DIPHENHYDRAMINE HCL 50 MG/ML VIAL IV ONE (01:22)
[2019-04-17] MEDS ORDERED: METOCLOPRAMIDE HCL INJ/PF 10 MG/2 ML SDV IV ONE (01:22)
--- NOTE | 2019-04-17 01:24 | ER Document Report ---
ED General - General Chief Complaint: Breathing Difficulty Stated Complaint: SHORTNESS OF BREATH Time Seen by Provider: 04/16/19 19:21 Mode of Arrival: Wheelchair Notes: Patient is a 18-year-old female that comes to the emergency department for chief complaint of upper respiratory infection for the past 2 weeks. She states over the past 3 days she has gotten much worse with wheezing and shortness of breath and also vomiting multiple times a day. She denies abdominal pain however, she states she just vomits if she eats or take something. She states she had the same problem in her first , she is G2, P1 at 12 weeks gestation by last menstrual period. She denies vaginal bleeding, flank pain. She does report nonproductive cough, states she has a history of asthma as a child but does not require albuterol as an adult. She denies any daily prescribed medications or medical history otherwise. at bedside. TRAVEL OUTSIDE OF THE [place] IN LAST 30 DAYS: No - Related Data Allergies/Adverse Reactions: No Known Allergies Allergy (Verified 04/16/19 19:26) Past Medical History - General Information source: Patient - Social History Smoking Status: Never Smoker Chew tobacco use (# tins/day): No Frequency of alcohol use: None Drug Abuse: Marijuana Lives with: Family Family History: Reviewed & Not Pertinent Patient has suicidal ideation: No Patient has homicidal ideation: No - Immunizations Immunizations up to date: Yes Hx Diphtheria, Pertussis, Tetanus Vaccination: Yes Review of Systems - Review of Systems Constitutional: See HPI EENT: See HPI Cardiovascular: No symptoms reported Respiratory: See HPI Gastrointestinal: No symptoms reported Genitourinary: No symptoms reported Female Genitourinary: See HPI Musculoskeletal: No symptoms reported Skin: No symptoms reported Hematologic/Lymphatic: No symptoms reported Neurological/Psychological: No symptoms reported Physical Exam - Vital signs Vitals: Temp Pulse Resp BP Pulse Ox 99.2 F 101 H 16 113/64 90 L 04/16/19 18:27 04/16/19 18:27 04/16/19 18:27 04/16/19 18:27 04/16/19 18:27 - Notes Notes: GENERAL: Alert, interacts well. No acute distress. HEAD: Normocephalic, atraumatic. EYES: Pupils equal, round, and reactive to light. Extraocular movements intact. ENT: Oral mucosa dry, tongue midline. Oropharynx with minimal erythema. Airway patent. Very congested, nontender sinuses no nasal septal hematoma, TM's intact. NECK: Full range of motion. Supple. Trachea midline. LUNGS: A few scattered expiratory wheezes, occasional congested cough. No tachypnea or signs of distress HEART: Regular rate and rhythm. No murmur ABDOMEN: Soft, non-tender. Non-distended. EXTREMITIES: Moves all 4 extremities spontaneously. No edema, normal radial and dorsalis pedis pulses bilaterally. No cyanosis. BACK: no cervical, thoracic, lumbar midline tenderness. No saddle anesthesia, normal distal neurovascular exam. Moves all extremities in full range of motion. NEUROLOGICAL: Alert and oriented x3. Normal speech. Cranial nerves II through XII grossly intact. PSYCH: Normal affect, normal mood. SKIN: Warm, dry, normal turgor. No rashes or lesions noted. Course - Re-evaluation Re-evalutation: Reportedly patient was tachycardic at 101 with oxygen saturation of 90% initially. On my evaluation she does have some expiratory wheezes but her lungs are mostly clear. She speaks in full sentences without tachypnea. She was given an additional treatment, IV fluids, and reevaluated. Wheezing completely resolved. Patient does have some congestion and occasional cough but she is otherwise very well-appearing. She is denying abdominal pain, flank pain, or vaginal bleeding. test is positive. She denies nausea after treatment, she was able to tolerate p.o. without any difficulty. Chest x-ray negative, CBC shows leukocytosis with unremarkable hemoglobin, work- up consistent with dehydration especially in the urine. Chemistry nonspecific. Overall presentation is consistent with a viral illness, no pneumonia is noted. Discussed all results with patient Patient was ambulated and had normal oxygen saturation. Other than her upper respiratory symptoms she is very well-appearing. Patient called me back into the room. She states she still does not feel great. She states she hurts all over, is congested, and is coughing. I discussed with patient, asked if I could help her not on his way, we decided to give her lactated Ringer's to help her feel better generally and Tylenol. After this vit als excellent, no additional complaints, discharged with follow-up instructions and return precautions. Patient and stated understanding and agreement with plan. - Vital Signs Vital signs: Temp Pulse Resp BP Pulse Ox 98.2 F 85 16 112/66 100 04/17/19 06:22 04/17/19 06:22 04/17/19 06:22 04/17/19 06:22 04/17/19 06:22 - Laboratory Result Diagrams: 04/16/19 19:50 04/16/19 19:50 Laboratory results interpreted by me: 04/16/19 04/16/19 04/16/19 19:50 19:50 20:52 WBC 16.4 H Hgb 11.2 L Hct 34.4 L MCV 67 L MCH 21.9 L RDW 15.2 H Eos % (Auto) 6.1 H Absolute Neuts (auto) 10.9 H Absolute Eos (auto) 1.0 H Potassium 3.5 L Carbon Dioxide 21 L BUN 4 L Creatinine 0.46 L Beta HCG, Quant 84124.00 H Urine Protein 30 H Urine Ketones 80 H Urine Blood SMALL H Urine Urobilinogen 4.0 H Discharge - Discharge Clinical Impression: Wheezing, Cough, Vomiting affecting , Dehydration Upper respiratory infection Qualifiers: URI type: unspecified URI Qualified Code(s): J06.9 - Acute upper respiratory infection, unspecified Condition: Stable Disposition: HOME, SELF-CARE Additional Instructions: Your evaluation is consistent with an upper respiratory infection. This has caused some wheezing, use the albuterol inhaler as prescribed every 4-6 hours. Use the spacer with this. You have been prescribed Reglan and Benadryl to take as needed for nausea as well. Drink plenty of fluids, start with bland food, slowly progress. Follow closely with primary care for additional evaluation and management. Come back if you worsen including difficulty breathing, fevers, uncontrolled vomiting, or any other concerning symptoms. Prescriptions: Diphenhydramine HCl 1 - 2 tab PO Q6H PRN #30 tablet PRN Reason: nausea Albuterol Sulfate [Proair HFA Inhalation Aerosol 8.5 gm MDI] 2 puff IH Q4H PRN #1 mdi PRN Reason: Metoclopramide HCl [Reglan] 5 mg PO ASDIR PRN #30 tablet PRN Reason:
[2019-04-17] MEDS ORDERED: ALBUTEROL SULFATE HFA (90 MCG/PUFF) 8 GM MDI (1 MDI/ER DISP) IH ONE (03:52)
[2019-04-17] MEDS ORDERED: RINGERS SOLUTION,LACTATED 1,000 ML IV ONE (05:14)
[2019-04-17] MEDS ORDERED: ACETAMINOPHEN 325 MG TABLET PO ONE (05:14)
[2019-04-17 06:23] VITALS: BP 112/66
== END 2019-04-17 06:22 | disposition home or self-care (01) ==
LOC: ER 17:59
DX: O26.91 Pregnancy related conditions, unspecified, first trimester (principal); J06.9 Acute upper respiratory infection, unspecified; R06.00 Dyspnea, unspecified; E86.0 Dehydration; R06.2 Wheezing; O21.9 Vomiting of pregnancy, unspecified; Z3A.12 12 weeks gestation of pregnancy
CPT/HCPCS: 94640 ×2; 99285; 96361; 96374; 96375; 36415; 84702; 85025; 80053; 81001; 87804; 71046; J3490 ×2; J1200; J2765; J7030; J7120; J7620

== ENCOUNTER 2019-04-23 18:29 | Observation (INO) | payer MEDICAID ==
[2019-04-23] MEDS ORDERED: ALBUTEROL SULFATE 0.083% NEB 2.5 MG/3 ML AMPUL NEB ONE ×2 (20:07→20:09)
--- NOTE | 2019-04-23 20:11 | ER Document Report ---
HPI - HPI Time Seen by Provider: 04/23/19 20:02 Notes: Patient is a 18-year-old female G2, P1 approximately 13 weeks who presents complaining of continued nasal congestion/discharge and dry cough. Patient states her symptoms have been ongoing for the past 3 weeks. She was evaluated about a week ago here in the emergency department was diagnosed with a viral illness with an unremarkable work-up at that time. She does continue to use her inhaler on occasion as she has a history of asthma. Denies drug allergies. She is able to eat and drink without difficulty. She is urinating normally. Denies any headache, fever, neck pain, sore throat, chest pain, palpitations, syncope, shortness of breath, dyspnea, abdominal pain, nausea/vomiting/diarrhea, urinary retention, dysuria, hematuria, or rash. No vaginal bleeding, odor, or discharge. - ROS Systems Reviewed and Negative: Yes All other systems reviewed and negative - REPRODUCTIVE Reproductive: REPORTS: : Past Medical History - Social History Smoking Status: Never Smoker Family History: Reviewed & Not Pertinent Pulmonary Medical History: Reports: Hx Asthma - Immunizations Immunizations up to date: Yes Hx Diphtheria, Pertussis, Tetanus Vaccination: Yes Vertical Provider Document - CONSTITUTIONAL Agree With Documented VS: Yes Notes: PHYSICAL EXAMINATION: GENERAL: Well-appearing, well-nourished and in no acute distress. A&Ox4. Answers questions appropriately. Moves comfortably w/o notable distress HEAD: Atraumatic, normocephalic. EYES: Pupils equal round and reactive to light, extraocular movements intact, sclera anicteric, conjunctiva are normal. ENT: Nares patent and with clear discharge. oropharynx no erythema without exudates. No tonsilar hypertrophy without erythema or exudate. No palatine shift. Uvula midline. No tongue protrusion. No drooling, hoarseness, or airway compromise. Moist mucous membranes. No sinus tenderness. NECK: Normal range of motion, supple without lymphadenopathy. No rigidity/meningismus. LUNGS: Scant expiratory wheeze at the bases bilaterally. No retractions HEART: Regular rate and rhythm without murmurs, rubs, gallops. ABDOMEN: Soft, nontender, nondistended abdomen. No guarding, no rebound. Normal bowel sounds present. No CVA tenderness bilaterally. NEUROLOGICAL: Normal speech, normal gait. PSYCH: Normal mood, normal affect. SKIN: Warm, Dry, normal turgor, no rashes or lesions noted. - INFECTION CONTROL TRAVEL OUTSIDE OF THE [place] IN LAST 30 DAYS: No Course - Re-evaluation Re-evalutation: 04/23/19 20:08 Patient is an afebrile, well-hydrated, 18yo female who presents to the emergency department with a continued cough x3 weeks while being . Vitals are acceptable without significant tachycardia, tachypnea, or hypoxia. PE is otherwise unremarkable. She is nontoxic-appearing and is tolerating p.o. without difficulty. Lungs are clear to auscultation bilaterally. No labs or imaging warranted at this time. Pt received an albuterol neb treatment. Low suspicion for any meningitis, sepsis, peritonsillar/pharyngeal abscess, respiratory compromise, Zeke's, or other emergent systemic condition at this time. Patient is aware this condition can change from initial presentation and she needs to monitor symptoms closely. I will send her home with a prescription for Zithromax, category B, due to the prolonged symptomatology and being . Conservative measures otherwise for symptoms. Recheck with your PCM/OBGYN in 2-3 days. Return to the ED with any worsening/concerning symptoms otherwise as reviewed in discharge. Patient is in agreement. - Vital Signs Vital signs: Temp Pulse Resp BP Pulse Ox 99.9 F 97 18 136/74 H 91 L 04/23/19 18:39 04/23/19 18:39 04/23/19 18:39 04/23/19 18:39 04/23/19 18:39 Discharge - Discharge Clinical Impression: Cough Condition: Stable Disposition: HOME, SELF-CARE Additional Instructions: Maintain adequate fluid intake tylenol as needed alternating every 3 hours for fever/body ache Humidified air may help Wash your hands regularly Wear a mask when coughing F/u: with your PCM/AUTOMATION OPERATOR in 2-3 days for a recheck Return to the ED with any fever, altered mental status/behavior, chest pain, palpitations, syncope, headache, neck pain/stiffness, shortness of breath, chest pains, wheezing, drooling, trouble swallowing/breathing, abdominal pain, n/v/d, rash, or worsening/concerning symptoms otherwise. Forms: Elevated Blood Pressure
--- NOTE | 2019-04-23 20:13 | ER Document Report ---
ED Medical Screen (RME) - General Chief Complaint: Congestion Stated Complaint: BODY PAIN,COUGH,CONGESTION Time Seen by Provider: 04/23/19 20:02 TRAVEL OUTSIDE OF THE [place] IN LAST 30 DAYS: No - HPI Notes: 04/23/19 20:12 Patient is a 18-year-old female G2, P1 approximately 13 weeks who presents complaining of continued nasal congestion/discharge and dry cough. Patient states her symptoms have been ongoing for the past 3 weeks. She was evaluated about a week ago here in the emergency department was diagnosed with a viral illness with an unremarkable work-up at that time. She does continue to use her inhaler on occasion as she has a history of asthma. Denies drug allergies. She is able to eat and drink without difficulty. She is urinating normally. Denies any headache, fever, neck pain, sore throat, chest pain, palpitations, syncope, shortness of breath, dyspnea, abdominal pain, nausea/vomiting/diarrhea, urinary retention, dysuria, hematuria, or rash. No vaginal bleeding, odor, or discharge. Pt mildly hypoxic at 91%. Rechecked and was 91-92% on RA. Neb treatments ordered and CXR. I have treated and performed a rapid initial assessment of this patient. A comprehensive ED assessment and evaluation of the patient, analysis of test results and completion of medical decision making process will be conducted by additional ED providers. PHYSICAL EXAMINATION: GENERAL: Well-appearing, well-nourished and in no acute distress. A&Ox4. Answers questions appropriately. Lungs: wheezing b/l base. No retractions. - Related Data Allergies/Adverse Reactions: No Known Allergies Allergy (Verified 04/23/19 20:02) Past Medical History - Social History Frequency of alcohol use: None Drug Abuse: None Pulmonary Medical History: Reports: Hx Asthma - Immunizations Immunizations up to date: Yes Hx Diphtheria, Pertussis, Tetanus Vaccination: Yes Physical Exam - Vital signs Vitals: Temp Pulse Resp BP Pulse Ox 99.9 F 97 18 136/74 H 91 L 04/23/19 18:39 04/23/19 18:39 04/23/19 18:39 04/23/19 18:39 04/23/19 18:39 Course - Vital Signs Vital signs: Temp Pulse Resp BP Pulse Ox 99.9 F 97 18 136/74 H 91 L 04/23/19 18:39 04/23/19 18:39 04/23/19 18:39 04/23/19 18:39 04/23/19 18:39
[2019-04-23 20:45] LABS: ABSOLUTE EOSINOPHILS # (AUTO) 1.1 10^3/uL (0.0-0.6); ABSOLUTE LYMPHOCYTES (AUTO) 3.3 10^3/uL (0.5-4.7); ABSOLUTE MONOCYTES (AUTO) 1.1 10^3/uL (0.1-1.4); ABSOLUTE NEUT (AUTO) 9.5 10^3/uL (1.7-8.2); BASOPHILS % (AUTO) 0.3 % (0-2); EOSINOPHILS % (AUTO) 7.6 % (0-6); HEMATOCRIT 32.8 % (36.0-47.0); HEMOGLOBIN 10.7 g/dL (12.0-15.5); LYMPHOCYTES % (AUTO) 21.7 % (13-45); MEAN CORPUSCULAR HEMOGLOBIN 21.8 pg (27.0-33.4); MEAN CORPUSCULAR HGB CONC 32.6 g/dL (32.0-36.0); MEAN CORPUSCULAR VOLUME 67 fl (80-97); MONOCYTES % (AUTO) 7.3 % (3-13); PLATELET COUNT 381 10^3/uL (150-450); RED BLOOD COUNT 4.91 10^6/uL (3.72-5.28); RED CELL DISTRIBUTION WIDTH 15.1 % (11.5-14.0); SEGMENTED NEUTROPHILS % (AUTO) 63.1 % (42-78); TOTAL CELLS COUNTED % (AUTO) 100 %
[2019-04-23 20:46] LABS: VENOUS BLOOD BASE EXCESS -1.7 mmol/L; VENOUS BLOOD HCO3 21.9 mmol/L (20-32); VENOUS BLOOD PCO2 33.7 mmHg (35-63); VENOUS BLOOD PH 7.43 (7.30-7.42)
[2019-04-23 21:11] LABS: ALBUMIN 3.5 g/dL (3.5-5.0); ALKALINE PHOSPHATASE 74 U/L (38-126); ANION GAP 10 (5-19); ASPARTATE AMINO TRANSFERASE 14 U/L (14-36); BILIRUBIN,DIRECT 0.2 mg/dL (0.0-0.4); BILIRUBIN,TOTAL 0.2 mg/dL (0.2-1.3); BLOOD UREA NITROGEN 3 mg/dL (7-20); CALCIUM 9.4 mg/dL (8.4-10.2); CARBON DIOXIDE 22 mmol/L (22-30); CHLORIDE 106 mmol/L (98-107); GLUCOSE 88 mg/dL (75-110); POTASSIUM 3.8 mmol/L (3.6-5.0); TOTAL PROTEIN 6.8 g/dL (6.3-8.2)
[2019-04-23] MEDS ORDERED: CEFTRIAXONE INJ 1000 MG VIAL IV ONE (21:58)
[2019-04-23] MEDS ORDERED: METHYLPREDNISOLONE INJ 125 MG/2 ML SDV IV ONE (21:58)
[2019-04-23] MEDS ORDERED: METOCLOPRAMIDE HCL INJ/PF 10 MG/2 ML SDV IV ONE (21:59)
[2019-04-23] MEDS ORDERED: DEXTROSE 5%-LACTATED RINGERS 1,000 ML IV ONE (21:59)
--- NOTE | 2019-04-23 22:07 | ER Document Report ---
ED General - General Chief Complaint: Congestion Stated Complaint: BODY PAIN,COUGH,CONGESTION Time Seen by Provider: 04/23/19 20:02 TRAVEL OUTSIDE OF THE [place] IN LAST 30 DAYS: No - HPI Notes: Ms. Strauss is a 26-year-old female 2 para 1 at about 13 weeks EGA seen now for her second visit in 3 days for coughing wheezing and intermittent posttussive emesis. She was afebrile and oxygenating normally at her prior visit and was sent out with a metered-dose inhaler. We note she has had a longstanding history of chronic intermittent asthma with as needed use of inhaler. She is a former smoker. She is exposed to secondhand smoke from her boyfriend. States that she is never been hospitalized for asthma. Reports no problems with her asthma during her first . Intermittent tactile fever for several days. She is coughing up scant amounts of green sputum. She tends to vomit during paroxysms of coughing. Past medical history is otherwise unremarkable. - Related Data Allergies/Adverse Reactions: No Known Allergies Allergy (Verified 04/23/19 20:02) Past Medical History - General Information source: Patient, Relative - Social History Smoking Status: Former Smoker Frequency of alcohol use: None Drug Abuse: None Family History: Reviewed & Not Pertinent Patient has suicidal ideation: No Patient has homicidal ideation: No Pulmonary Medical History: Reports: Hx Asthma Past Surgical History: Reports: Hx Section - Immunizations Immunizations up to date: Yes Hx Diphtheria, Pertussis, Tetanus Vaccination: Yes Review of Systems - Review of Systems Notes: Constitutional: Negative for fever. HENT: Negative for sore throat. Eyes: Negative for visual changes. Cardiovascular: Negative for chest pain. Respiratory: As per HPI. Gastrointestinal: As per HPI. Genitourinary: Negative for dysuria. Musculoskeletal: Negative for back pain. Skin: Negative for rash. Neurological: Negative for headaches, weakness or numbness. 10 point ROS negative except as marked above and in HPI. Physical Exam - Vital signs Vitals: Temp Pulse Resp BP Pulse Ox 99.9 F 97 18 136/74 H 91 L 04/23/19 18:39 04/23/19 18:39 04/23/19 18:39 04/23/19 18:39 04/23/19 18:39 - Notes Notes: GENERAL: Slender female appearing approximately her stated age who is coughing continuously and has audible wheezes. SKIN: Good turgor no rashes. HEAD: Normocephalic atraumatic. EYES: PERRLA. EOMI. Conjunctivae injected bilaterally. EARS: CANALS AND TMS CLEAR. NOSE: CLEAR. MOUTH: Moist mucosa. Good dentition. No stridor or edema. No drooling. NECK: Supple. No masses or thyromegaly. No adenopathy. Carotids 2+ without bruits. No JVD. BACK: Symmetrical without tenderness. CHEST: Mildly tachypneic. Minimal use of accessory muscles respiration. Patient has diffuse end expiratory wheezes and scattered rhonchi bilaterally right greater than left.. HEART: Regular rhythm. No murmur gallop or rub. ABDOMEN: Soft nontender without masses, organomegaly or rebound. Bowel sounds normally active. No bruits. GENITALIA: Deferred. EXTREMITIES: No edema. No calf tenderness. Cap refill less than 1.5 seconds. Dorsalis pedis and posterior tibial pulses 3+ and symmetrical. NEUROLOGICAL: GCS 15. Alert and oriented x3. Normal gait. Fluent speech. Cranial nerves II through XII intact. Sensorimotor and cerebellar normal. Normal tone. PSYCHIATRIC: Appropriate affect. Course - Re-evaluation Re-evalutation: 04/23/19 22:08 Rapid influenza screen is negative. Patient appears to have minimal infiltrate right perihilar area. Abdomen to give her some Rocephin IV and also Solu-Medrol 125 mg. Was placed on low-flow nasal O2 and we will give her some Reglan for nausea. She is also receiving a liter of D5LR. Unless her wheezes cleared substantially within the next 90 minutes with additional nebulizer treatments and her oxygenation is entirely normal she will need to be admitted. 04/24/19 01:13 On recheck patient is still wheezing. Her oxygenation is satisfactory but she still coughing a lot. She had additional nebulizer treatments and her IV Rocephin and IV steroids. I recommend admission for her and discussed her case with the on-call hospitalist Dr. Geraldo Nuno who is agreeable to admit. Patient has decided however that she does not want to stay. I told her that if she chooses not to remain in the hospital for admission as she will + out a AMA. I have explained to her that there is a risk to her developing fetus and to herself if she chooses not to get adequate care for her pneumonia and asthma exacerbation at this time. She is currently arguing over this with her family members. We will await her decision at this time. I believe she has adequate capacity to decline care although this is clearly not in her best interest. 04/24/19 01:48 After further discussion with her family patient is now agreeable to admission and Dr. Nuno will admit to telemetry observation. - Vital Signs Vital signs: Temp Pulse Resp BP Pulse Ox 99 F 104 H 19 124/80 100 04/24/19 01:46 04/23/19 21:40 04/24/19 01:43 04/24/19 01:43 04/24/19 01:43 - Laboratory Result Diagrams: 04/23/19 20:30 04/23/19 20:30 Laboratory results interpreted by me: 04/23/19 04/23/19 04/23/19 20:30 20:30 20:30 WBC 15.0 H Hgb 10.7 L Hct 32.8 L MCV 67 L MCH 21.8 L RDW 15.1 H Eos % (Auto) 7.6 H Absolute Neuts (auto) 9.5 H Absolute Eos (auto) 1.1 H Carbonic Acid ABG pH ABG pCO2 ABG pO2 VBG pH 7.43 H VBG pCO2 33.7 L BUN 3 L Creatinine 0.45 L 04/23/19 23:00 WBC Hgb Hct MCV MCH RDW Eos % (Auto) Absolute Neuts (auto) Absolute Eos (auto) Carbonic Acid 0.92 L ABG pH 7.47 H ABG pCO2 30.6 L ABG pO2 67.6 L VBG pH VBG pCO2 BUN Creatinine - Diagnostic Test Radiology results interpreted by me: 04/23/19 22:07 I reviewed the chest x-ray and patient appears to have a patchy right perihilar infiltrate. No pneumothorax. Discharge - Discharge Clinical Impression: with 13 completed weeks gestation Asthma exacerbation Qualifiers: Asthma severity: moderate Asthma persistence: unspecified Qualified Code(s): J45.901 - Unspecified asthma with (acute) exacerbation Right middle lobe pneumonia Qualifiers: Pneumonia type: due to unspecified organism Qualified Code(s): J18.9 - Pneumonia, unspecified organism Condition: Fair Disposition: ADMITTED OBSERVATION Admitting Provider: Yaakov (Hospitalist) Unit Admitted: Telemetry
--- NOTE | 2019-04-23 22:13 | RADIOLOGY REPORT (SQ) ---
Chest 2 view on 04/23/2019 9:16 PM CLINICAL INDICATION: Cough COMPARISON: 04/16/2019 FINDINGS: There is mild developing patchy right middle lobe opacity suggesting early right middle lobe pneumonia. The lungs are otherwise clear. Cardiac, hilar and mediastinal contours are within normal limits. No bony abnormality is noted. IMPRESSION: Findings suggesting early right middle lobe pneumonia.
[2019-04-23] MEDS ORDERED: IPRATROPIUM/ALBUTEROL 0.5-2.5 MG/3 ML AMPUL NEB ONE (23:41)
[2019-04-24 00:50] LABS: ARTERIAL BLOOD BASE EXCESS -1.1 mmol/L; ARTERIAL BLOOD FIO2 ROOM AIR; ARTERIAL BLOOD H2CO3 0.92 mmol/L (1.05-1.35); ARTERIAL BLOOD HCO3 21.9 mmol/L (20-24); ARTERIAL BLOOD O2 SATURATION 94.8 % (94-98); ARTERIAL BLOOD PCO2 30.6 mmHg (35-45); ARTERIAL BLOOD PH 7.47 (7.35-7.45); ARTERIAL BLOOD PO2 67.6 mmHg (80-100); ARTERIAL BLOOD TOTAL CO2 22.8 mmol/L (21-25)
[2019-04-24] MEDS ORDERED: IPRATROPIUM/ALBUTEROL 0.5-2.5 MG/3 ML AMPUL NEB PRN (02:38)
[2019-04-24] MEDS ORDERED: ACETAMINOPHEN 325 MG TABLET PO PRN (02:38)
[2019-04-24] MEDS ORDERED: INFLUENZA QUAD (6MOS+) 2019-20 VAC 0.5 ML SYR IM ONE (04:07)
--- NOTE | 2019-04-24 05:42 | PDOC H&P ---
History of Present Illness Admission Date/PCP: 04/24/19 01:54 Patient complains of: Shortness of breath History of Present Illness: BRITTA SHARPE is a 18 year old female with a past medical history of asthma, GERD, tobacco, G2, P1 13 weeks EGA presents with 5 days of progressive shortness of breath, wheeze and paroxysms of cough. She is found to have a Right-sided infiltrate on chest x-ray, leukocytosis and hypoxia by ABG. She receives albuterol, Atrovent, Rocephin and referred to the hospitalist for admission. Patient denies previous intubation or hospitalization for exacerbation of asthma. She denies infectious contacts but admits to boyfriends secondhand smoke as trigger for asthma. Past Medical History Pulmonary Medical History: Reports: Asthma, Bronchitis Past Surgical History Past Surgical History: Reports: Section Social History Information Source: Patient Lives with: Spouse/Significant other Smoking Status: Former Smoker - Advance Directive Resuscitation Status: Full Code Family History Family History: Hypertension Parental Family History Reviewed: Yes Children Family History Reviewed: Yes Sibling(s) Family History Reviewed.: Yes Medication/Allergy Home Medications: Ferrous Sulfate [Feosol 325 mg Tablet] 325 mg PO DAILY #30 tablet 08/26/18 Ibuprofen [Motrin 800 mg Tablet] 800 mg PO Q6A #60 tablet 08/26/18 Oxycodone HCl/Acetaminophen [Percocet 5-325 mg Tablet] 1 tab PO Q4HP PRN #30 tablet 08/26/18 Albuterol Sulfate [Proair HFA Inhalation Aerosol 8.5 gm MDI] 2 puff IH Q4H PRN #1 mdi 04/17/19 Diphenhydramine HCl 1 - 2 tab PO Q6H PRN #30 tablet 04/17/19 Metoclopramide HCl [Reglan] 5 mg PO ASDIR PRN #30 tablet 04/17/19 Allergies/Adverse Reactions: No Known Allergies Allergy (Verified 04/23/19 20:02) Review of Systems Constitutional: ABSENT: chills, fever(s), headache(s), weight gain, weight loss Eyes: ABSENT: visual disturbances Ears: ABSENT: hearing changes Cardiovascular: PRESENT: as per HPI. ABSENT: chest pain, dyspnea on exertion, edema, orthropnea, palpitations Respiratory: PRESENT: as per HPI, cough, dyspnea, sputum. ABSENT: hemoptysis Gastrointestinal: ABSENT: abdominal pain, constipation, diarrhea, hematemesis, hematochezia, nausea, vomiting Genitourinary: ABSENT: dysuria, hematuria Musculoskeletal: ABSENT: joint swelling Integumentary: ABSENT: rash, wounds Neurological: ABSENT: abnormal gait, abnormal speech, confusion, dizziness, focal weakness, syncope Psychiatric: ABSENT: anxiety, depression, homidical ideation, suicidal ideation Endocrine: ABSENT: cold intolerance, heat intolerance, polydipsia, polyuria Hematologic/Lymphatic: ABSENT: easy bleeding, easy bruising Physical Exam Vital Signs: Temp Pulse Resp BP Pulse Ox 98 F 87 18 123/87 H 93 04/24/19 03:32 04/24/19 03:32 04/24/19 03:32 04/24/19 03:32 04/24/19 03:32 Intake & Output 04/22/19 04/23/19 04/24/19 11:59 11:59 11:59 Intake Total 1000 Balance 1000 Weight 72.1 kg General appearance: PRESENT: cooperative, mild distress, well-developed, well- nourished Head exam: PRESENT: atraumatic, normocephalic Eye exam: PRESENT: conjunctiva pink, EOMI, PERRLA. ABSENT: scleral icterus Ear exam: PRESENT: normal external ear exam Mouth exam: PRESENT: moist, tongue midline Neck exam: ABSENT: carotid bruit, JVD, lymphadenopathy, thyromegaly Respiratory exam: PRESENT: accessory muscle use, prolonged expiratory phas, rales, retraction, wheezes. ABSENT: rhonchi Cardiovascular exam: PRESENT: RRR. ABSENT: diastolic murmur, rubs, systolic murmur Pulses: PRESENT: normal dorsalis pedis pul Vascular exam: PRESENT: normal capillary refill GI/Abdominal exam: PRESENT: normal bowel sounds, soft. ABSENT: distended, guarding, mass, organolmegaly, rebound, tenderness Rectal exam: PRESENT: deferred Extremities exam: PRESENT: full ROM. ABSENT: calf tenderness, clubbing, pedal edema Neurological exam: PRESENT: alert, awake, oriented to person, oriented to place, oriented to time, oriented to situation, CN II-XII grossly intact. ABSENT: motor sensory deficit Psychiatric exam: PRESENT: appropriate affect, normal mood. ABSENT: homicidal ideation, suicidal ideation Skin exam: PRESENT: dry, intact, warm. ABSENT: cyanosis, rash Results Laboratory Results: 04/23/19 20:30 04/23/19 20:30 04/23/19 04/23/19 04/23/19 20:30 20:30 20:30 WBC 15.0 H RBC 4.91 Hgb 10.7 L Hct 32.8 L MCV 67 L MCH 21.8 L MCHC 32.6 RDW 15.1 H Plt Count 381 Seg Neutrophils % 63.1 Carbonic Acid HCO3/H2CO3 Ratio ABG pH ABG pCO2 ABG pO2 ABG HCO3 ABG O2 Saturation ABG Base Excess VBG pH 7.43 H VBG pCO2 33.7 L VBG HCO3 21.9 VBG Base Excess -1.7 FiO2 Sodium 138.4 Potassium 3.8 Chloride 106 Carbon Dioxide 22 Anion Gap 10 BUN 3 L Creatinine 0.45 L Est GFR ( Amer) > 60 Glucose 88 Calcium 9.4 Total Bilirubin 0.2 AST 14 Alkaline Phosphatase 74 Total Protein 6.8 Albumin 3.5 04/23/19 23:00 WBC RBC Hgb Hct MCV MCH MCHC RDW Plt Count Seg Neutrophils % Carbonic Acid 0.92 L HCO3/H2CO3 Ratio 23:1 ABG pH 7.47 H ABG pCO2 30.6 L ABG pO2 67.6 L ABG HCO3 21.9 ABG O2 Saturation 94.8 ABG Base Excess -1.1 VBG pH VBG pCO2 VBG HCO3 VBG Base Excess FiO2 ROOM AIR Sodium Potassium Chloride Carbon Dioxide Anion Gap BUN Creatinine Est GFR ( Amer) Glucose Calcium Total Bilirubin AST Alkaline Phosphatase Total Protein Albumin Impressions: Chest X-Ray 04/23/19 20:09 IMPRESSION: Findings suggesting early right middle lobe pneumonia. Assessment and Plan - Diagnosis (1) Right middle lobe pneumonia Qualifiers: Pneumonia type: due to unspecified organism Qualified Code(s): J18.9 - Pne umonia, unspecified organism Is this a current diagnosis for this admission?: Yes Plan: Pneumonia care set, Rocephin, incentive spirometry, follow-up CBC and blood culture (2) Asthma exacerbation Qualifiers: Asthma severity: moderate Asthma persistence: unspecified Qualified Code(s): J45.901 - Unspecified asthma with (acute) exacerbation Is this a current diagnosis for this admission?: Yes Plan: Secondary to #1, albuterol, Atrovent, optimize GERD control. (3) Microcytic anemia Is this a current diagnosis for this admission?: Yes Plan: Likely iron deficient, follow-up anemia studies (4) with 13 completed weeks gestation Is this a current diagnosis for this admission?: Yes Plan: Obtain OB consult PRN (5) GERD (gastroesophageal reflux disease) Is this a current diagnosis for this admission?: Yes Plan: Education, Prevacid twice daily. - Time Time Spent with patient: 25-34 minutes - Inpatient Certification Medical Necessity: Need Close Monitoring Due to Risk of Patient Decompensation
[2019-04-24 05:59] LABS: ABSOLUTE RETICS # 0.082 10^6/uL (0.028-0.122)
[2019-04-24 06:19] LABS: IRON(TIBC) 28.5 ug/dL (37-170)
[2019-04-24] MEDS: HEPARIN SOD (PORCINE) 5,000 UNIT/ML 1 ML VIAL SUBCUT SCH ×2 (07:41→16:16)
[2019-04-24] MEDS: IPRATROPIUM/ALBUTEROL 0.5-2.5 MG/3 ML AMPUL NEB SCH ×2 (08:18→13:43)
[2019-04-24] MEDS ORDERED: FLUTICASONE NASAL SPRAY 50 MCG/SPRY 120 SPRAY/16 GM NASL SCH (10:00)
[2019-04-24] MEDS ORDERED: FAMOTIDINE 20 MG TABLET PO SCH (10:00)
[2019-04-24 15:47] VITALS: BP 123/87
[2019-04-24] MEDS ORDERED: FERROUS SULFATE 325 MG TABLET PO SCH (18:00)
[2019-04-24] MEDS ORDERED: CEFTRIAXONE 1 GM/D5W RTU 1 GM/50 ML RTUPB IV SCH (22:00)
--- NOTE | 2019-04-25 17:54 | PDOC DISCHARGE SUMMARY ---
Impression - Admit/DC Date/PCP Admission Date/Primary Care Provider: 04/24/19 01:54 Discharge Date: 04/24/19 - Discharge Diagnosis (1) Asthma exacerbation Is this a current diagnosis for this admission?: Yes (2) Pneumonia Is this a current diagnosis for this admission?: Yes (3) Is this a current diagnosis for this admission?: Yes - Additional Information Resuscitation Status: Full Code Discharge Diet: As Tolerated Discharge Activity: Activity As Tolerated Referrals: SHANTEL BAHENA DO [NO LOCAL MD] - 05/01/19 1:15 pm ([address] [place] [address] ) Prescriptions: Amoxicillin/Potassium Clav [Augmentin 500-125 Tablet] 1 each PO BID 6 Days #12 tablet Prednisone 10 mg PO BID 5 Days #10 tablet 118/Iron/Folate 6/Dha [[facility] Softgel] 1 each PO DAILY #60 capsule Albuterol Sulfate [Proair HFA Inhalation Aerosol 8.5 gm MDI] 2 puff IH Q4H PRN #1 mdi PRN Reason: Home Medications: Albuterol Sulfate [Proair HFA Inhalation Aerosol 8.5 gm MDI] 2 puff IH Q4H PRN #1 mdi 04/24/19 Amoxicillin/Potassium Clav [Augmentin 500-125 Tablet] 1 each PO BID 6 Days #12 tablet 04/24/19 Prednisone 10 mg PO BID 5 Days #10 tablet 04/24/19 118/Iron/Folate 6/Dha [[facility] Softgel] 1 each PO DAILY #60 capsule 04/24/19 History of Present Illiness History of Present Illness: Admitting hospitalist's H&P: BRITTA SHARPE is a 18 year old female with a past medical history of asthma, GERD, tobacco, G2, P1 13 weeks EGA presents with 5 days of progressive shortness of breath, wheeze and paroxysms of cough. She is found to have a Right-sided infiltrate on chest x-ray, leukocytosis and hypoxia by ABG. She receives albuterol, Atrovent, Rocephin and referred to the hospitalist for admission. Patient denies previous intubation or hospitalization for exacerbation of asthma. She denies infectious contacts but admits to boyfriends secondhand smoke as trigger for asthma. Hospital Course Hospital Course: This is a 18-year-old female who is and was admitted for asthma exacerbation and pneumonia. She initially refused to be admitted but after longer discussion with his family, she eventually agreed to be admitted. She was started on IV steroids and antibiotics. She did improve on encounter this morning. She has been saturating well and comfortable on room air and was able to ambulate the hallway on room air as well. Did recommend to continue at least 24 hours of antibiotics and steroids to ensure she continues to do better however she adamantly insisted to being discharged today. She is not taking vitamins because she says she feels nauseous taking them. Strongly recommended trying a different formulation of vitamins for the wellbeing of her future baby and she said she will try again. She does not see a regular doctor. She will be given an appointment with a new PCP. She will be discharged on Augmentin. She will be also discharged on a short course of prednisone and albuterol inhaler. Also offered HIV testing but patient refused and says she will pursue this as outpatient. His is on the bedside. Patient's father is upset with her decision to be discharged today but reluctantly verbalize she cannot force her to stay against her will. Physical Exam Vital Signs: Temp Pulse Resp BP Pulse Ox 97.8 F 83 16 123/87 H 95 04/24/19 15:43 04/24/19 15:43 04/24/19 15:43 04/24/19 15:43 04/24/19 15:43 Intake & Output 04/24/19 04/25/19 04/26/19 06:59 06:59 06:59 Intake Total 1000 Balance 1000 Weight 158 lb 15.253 oz General appearance: PRESENT: no acute distress, well-developed, well-nourished Head exam: PRESENT: atraumatic, normocephalic Eye exam: PRESENT: conjunctiva pink, EOMI, PERRLA. ABSENT: scleral icterus Ear exam: PRESENT: normal external ear exam Mouth exam: PRESENT: moist, tongue midline Neck exam: ABSENT: carotid bruit, JVD, lymphadenopathy, thyromegaly Respiratory exam: PRESENT: clear to auscultation ryland. ABSENT: rales, rhonchi, wheezes Cardiovascular exam: PRESENT: RRR. ABSENT: diastolic murmur, rubs, systolic murmur Pulses: PRESENT: normal dorsalis pedis pul Vascular exam: PRESENT: normal capillary refill GI/Abdominal exam: PRESENT: normal bowel sounds, soft. ABSENT: distended, guarding, mass, organolmegaly, rebound, tenderness Rectal exam: PRESENT: deferred Extremities exam: PRESENT: full ROM. ABSENT: calf tenderness, clubbing, pedal edema Neurological exam: PRESENT: alert, awake, oriented to person, oriented to place, oriented to time, oriented to situation, CN II-XII grossly intact. ABSENT: motor sensory deficit Results Laboratory Results: WBC 15.0 10^3/uL (4.0-10.5) H 04/23/19 20:30 RBC 4.91 10^6/uL (3.72-5.28) 04/23/19 20:30 Hgb 10.7 g/dL (12.0-15.5) L 04/23/19 20:30 Hct 32.8 % (36.0-47.0) L 04/23/19 20:30 MCV 67 fl (80-97) L 04/23/19 20:30 MCH 21.8 pg (27.0-33.4) L 04/23/19 20:30 MCHC 32.6 g/dL (32.0-36.0) 04/23/19 20:30 RDW 15.1 % (11.5-14.0) H 04/23/19 20:30 Plt Count 381 10^3/uL (150-450) 04/23/19 20:30 Lymph % (Auto) 21.7 % (13-45) 04/23/19 20:30 [place] % (Auto) 7.3 % (3-13) 04/23/19 20:30 Eos % (Auto) 7.6 % (0-6) H 04/23/19 20:30 Baso % (Auto) 0.3 % (0-2) 04/23/19 20:30 Reticulocyte # 0.082 10^6/uL (0.028-0.122) 04/23/19 20:30 Absolute Neuts (auto) 9.5 10^3/uL (1.7-8.2) H 04/23/19 20:30 Absolute Lymphs (auto) 3.3 10^3/uL (0.5-4.7) 04/23/19 20:30 Absolute Monos (auto) 1.1 10^3/uL (0.1-1.4) 04/23/19 20:30 Absolute Eos (auto) 1.1 10^3/uL (0.0-0.6) H 04/23/19 20:30 Absolute Basos (auto) 0.0 10^3/uL (0.0-0.2) 04/23/19 20:30 Seg Neutrophils % 63.1 % (42-78) 04/23/19 20:30 Retic Count (auto) 1.70 % (0.66-2.85) 04/23/19 20:30 Carbonic Acid 0.92 mmol/L (1.05-1.35) L 04/23/19 23:00 HCO3/H2CO3 Ratio 23:1 04/23/19 23:00 ABG pH 7.47 (7.35-7.45) H 04/23/19 23:00 ABG pCO2 30.6 mmHg (35-45) L 04/23/19 23:00 ABG pO2 67.6 mmHg (80-100) L 04/23/19 23:00 ABG HCO3 21.9 mmol/L (20-24) 04/23/19 23:00 ABG Total CO2 22.8 mmol/L (21-25) 04/23/19 23:00 ABG O2 Saturation 94.8 % (94-98) 04/23/19 23:00 ABG Base Excess -1.1 mmol/L 04/23/19 23:00 VBG pH 7.43 (7.30-7.42) H 04/23/19 20:30 VBG pCO2 33.7 mmHg (35-63) L 04/23/19 20:30 VBG HCO3 21.9 mmol/L (20-32) 04/23/19 20:30 VBG Base Excess -1.7 mmol/L 04/23/19 20:30 FiO2 ROOM AIR 04/23/19 23:00 Sodium 138.4 mmol/L (137-145) 04/23/19 20:30 Potassium 3.8 mmol/L (3.6-5.0) 04/23/19 20:30 Chloride 106 mmol/L (98-107) 04/23/19 20:30 Carbon Dioxide 22 mmol/L (22-30) 04/23/19 20:30 Anion Gap 10 (5-19) 04/23/19 20:30 BUN 3 mg/dL (7-20) L 04/23/19 20:30 Creatinine 0.45 mg/dL (0.52-1.25) L 04/23/19 20:30 Est GFR ( Amer) > 60 (>60) 04/23/19 20:30 Est GFR (MDRD) Non-Af > 60 (>60) 04/23/19 20:30 Glucose 88 mg/dL (75-110) 04/23/19 20:30 Calcium 9.4 mg/dL (8.4-10.2) 04/23/19 20:30 Iron 28.5 ug/dL (37-170) L 04/23/19 20:30 TIBC 384 ug/dL (250-450) 04/23/19 20:30 % Saturation 7 % 04/23/19 20:30 Ferritin 11.80 ng/mL (6.2-137.0) 04/23/19 20:30 Total Bilirubin 0.2 mg/dL (0.2-1.3) 04/23/19 20:30 Direct Bilirubin 0.2 mg/dL (0.0-0.4) 04/23/19 20:30 Neonat Total Bilirubin Not Reportable 04/23/19 20:30 Neonat Direct Bilirubin Not Reportable 04/23/19 20:30 Neonat Indirect Bili Not Reportable 04/23/19 20:30 AST 14 U/L (14-36) 04/23/19 20:30 ALT 9 U/L (<35) 04/23/19 20:30 Alkaline Phosphatase 74 U/L (38-126) 04/23/19 20:30 Total Protein 6.8 g/dL (6.3-8.2) 04/23/19 20:30 Albumin 3.5 g/dL (3.5-5.0) 04/23/19 20:30 Vitamin B12 261.0 pg/mL (239-931) 04/23/19 20:30 Folate 13.40 ng/mL (>2.76) 04/23/19 20:30 Impressions: Chest X-Ray 04/23/19 20:09 IMPRESSION: Findings suggesting early right middle lobe pneumonia. Stroke Is this a Stroke Patient?: No Acute Heart Failure - Is this a Heart Failure Patient?: No
== END 2019-04-24 16:35 | disposition home or self-care (01) ==
LOC: ER 18:29 → EH 04-24 01:54 → 4S 04-24 03:29
PROVIDERS: ADMIT Internal Medicine; ATTEND Internal Medicine
DX: O99.511 Diseases of the respiratory system complicating pregnancy, first trimester (principal); J45.901 Unspecified asthma with (acute) exacerbation; J18.9 Pneumonia, unspecified organism; R09.02 Hypoxemia; O99.011 Anemia complicating pregnancy, first trimester; D50.9 Iron deficiency anemia, unspecified; O99.611 Diseases of the digestive system complicating pregnancy, first trimester; K21.9 Gastro-esophageal reflux disease without esophagitis; Z3A.13 13 weeks gestation of pregnancy; Z23 Encounter for immunization; Z77.22 Contact with and (suspected) exposure to environmental tobacco smoke (acute) (chronic); Z82.49 Family history of ischemic heart disease and other diseases of the circulatory system; Z87.891 Personal history of nicotine dependence
CPT/HCPCS: 94640 ×4; 99284; 96361; 96375; 96365; 36415 ×2; 82607; 82803 ×2; 82728; 82746; 83540; 83550; 85025; 85045; 80053; 71046; 90686; 94799; G0378; J3490 ×2; J2930; J2765; J0696; J7121; J7620

== ENCOUNTER 2019-10-22 04:27 | Inpatient (IN) | payer MEDICAID ==
[2019-10-22] MEDS ORDERED: RINGERS SOLUTION,LACTATED 1,000 ML IV PRN ×3 (05:00→11:35)
[2019-10-22] MEDS ORDERED: CEFAZOLIN SODIUM 2 GM in DEXTROSE 5%-WATER 100 ML IV PRN (05:00)
[2019-10-22] MEDS ORDERED: CEFAZOLIN 2 GM/D5W RTU 2 GM/50 ML RTUPB IV PRN (05:00)
[2019-10-22 06:05] LABS: ABSOLUTE EOSINOPHILS # (AUTO) 0.2 10^3/uL (0.0-0.6); ABSOLUTE LYMPHOCYTES (AUTO) 2.9 10^3/uL (0.5-4.7); ABSOLUTE MONOCYTES (AUTO) 1.5 10^3/uL (0.1-1.4); ABSOLUTE NEUT (AUTO) 6.4 10^3/uL (1.7-8.2); BASOPHILS % (AUTO) 0.2 % (0-2); HEMATOCRIT 29.3 % (36.0-47.0); HEMOGLOBIN 9.3 g/dL (12.0-15.5); LYMPHOCYTES % (AUTO) 26.3 % (13-45); MEAN CORPUSCULAR HEMOGLOBIN 22.4 pg (27.0-33.4); MEAN CORPUSCULAR HGB CONC 31.9 g/dL (32.0-36.0); MEAN CORPUSCULAR VOLUME 70 fl (80-97); MONOCYTES % (AUTO) 13.4 % (3-13); PLATELET COUNT 168 10^3/uL (150-450); RED BLOOD COUNT 4.16 10^6/uL (3.72-5.28); RED CELL DISTRIBUTION WIDTH 16.2 % (11.5-14.0); SEGMENTED NEUTROPHILS % (AUTO) 58.1 % (42-78); TOTAL CELLS COUNTED % (AUTO) 100 %
[2019-10-22 06:10] LABS: APPEARANCE,URINE SLIGHTLY-CLOUDY; BILIRUBIN,URINE NEGATIVE (NEGATIVE); COLOR,URINE YELLOW; GLUCOSE, URINE NEGATIVE (NEGATIVE); KETONES,URINE NEGATIVE (NEGATIVE); LEUKOCYTE ESTERASE,URINE NEGATIVE (NEGATIVE); NITRITE,URINE NEGATIVE (NEGATIVE); PROTEIN,URINE NEGATIVE (NEGATIVE); URINE SPECIFIC GRAVITY 1.014; UROBILINOGEN,URINE NEGATIVE mg/dL (<2.0)
[2019-10-22 06:22] LABS: URINE AMPHETAMINES SCREEN NEGATIVE; URINE BARBITURATES SCREEN NEGATIVE; URINE BENZODIAZEPINES SCREEN NEGATIVE; URINE COCAINE SCREEN NEGATIVE; URINE METHADONE SCREEN NEGATIVE; URINE PHENCYCLIDINE SCREEN NEGATIVE
[2019-10-22 06:26] LABS: URINE MARIJUANA (THC) SCREEN UNCONFIRMED POSITIVE
[2019-10-22] MEDS ORDERED: MIDAZOLAM 2 MG/2 ML INJ ONE (08:36)
[2019-10-22] MEDS ORDERED: CITRIC ACID/SODIUM CITRATE ORAL SOLN 15 ML UDCUP ONE (08:36)
[2019-10-22] MEDS ORDERED: OXYTOCIN 10 UNIT/ML VIAL ONE (08:36)
[2019-10-22] MEDS ORDERED: ONDANSETRON HCL INJ/PF 4 MG/2 ML SDV ONE (08:36)
[2019-10-22] MEDS ORDERED: FENTANYL CITRATE INJ/PF 100 MCG/2 ML AMPUL IV PRN ×3 (11:21)
[2019-10-22] MEDS ORDERED: MORPHINE SULFATE 10 MG/ML INJ IV PRN (11:21)
[2019-10-22] MEDS ORDERED: DIPHENHYDRAMINE HCL 50 MG/ML VIAL IV PRN (11:21)
[2019-10-22] MEDS ORDERED: MEASLES,MUMPS&RUBELLA VACC/PF 0.5 ML VIAL SUBCUT PRN (11:35)
[2019-10-22] MEDS ORDERED: SIMETHICONE 80 MG TAB.CHEW PO PRN (11:35)
[2019-10-22] MEDS ORDERED: OXYTOCIN/0.9 % SODIUM CHLORIDE 30 UNIT/500 ML RTUINJ IV PRN (11:35)
[2019-10-22] MEDS ORDERED: MORPHINE SULFATE 10 MG/ML INJ IM PRN (11:35)
[2019-10-22] MEDS ORDERED: DIPH/PERTUSS(ACELL)/TETANUS VAC/PF 0.5 ML SYR (>=10YO) IM PRN (11:35)
[2019-10-22] MEDS ORDERED: ACETAMINOPHEN 325 MG TABLET PO PRN (11:35)
[2019-10-22] MEDS ORDERED: ACETAMINOPHEN 1,000 MG/100 ML RTUPB IV PRN (11:35)
[2019-10-22] MEDS ORDERED: PROMETHAZINE HCL INJ 25 MG/1 ML VIAL IV PRN (11:35)
--- NOTE | 2019-10-22 11:35 | PDOC DELIVERY SUMMARY ---
Delivery Summary - Maternal Hx : II Hx # Term Pregnancies: 2 Hx # Pregnancies: 0 Hx Total # of Abortions (Sponateous & Elective): 0 BRAYAN: 10/28/19 Risk Factors: Previous Ruptured Membranes: AROM Fluids: Clear - Delivery Labor: Not In Labor Presentation: Vertex Uterine Contraction Monitoring: External Support Person Present: Yes : Scheduled Placenta: Within Normal Limits Nuchal Cord: Yes - Medications Type of Anesthesia:: Spinal
--- NOTE | 2019-10-22 11:39 | Operative Report ---
Operative Report DATE OF SURGERY: 10/22/19 PREOPERATIVE DIAGNOSIS: IUP at term prior section POSTOPERATIVE DIAGNOSIS: Same OPERATION: Repeat low transverse SURGEON: PRANAV PEREZ ANESTHESIA: Spinal TISSUE REMOVED OR ALTERED: Placenta ESTIMATED BLOOD LOSS: Less than 1000 cc PROCEDURE: The patient was taken to the operating room where spinal anesthesia was obtained and found to be adequate. She was then prepped and draped in the normal sterile fashion and placed in the dorsal supine position with a leftward tilt. A Pfannenstiel skin incision was then made and carried through to the underlying layers of the fascia with the scalpel. The fascia was incised in the midline and the incision extended laterally with the Noriega scissors. The superior aspect of the fascial incision was then grasped with Rigo clamps elevated and the underlying rectus muscles dissected off bluntly. Attention was then turned to the inferior aspect of the fascial incision which in a similar fashion was grasped, tented up with Yaneli clamps, and the rectus muscles dissected off bluntly. The rectus muscles were then in the midline and the peritoneum at the amount identified and entered bluntly. The peritoneal incision was then extended superiorly and inferiorly with good visualization of the bladder. [The bladder blade was inserted and the vesicouterine peritoneum identified grasped with Kosovan pickups and entered sharply with the Metzenbaum scissors. His incision was then extended laterally with the Metzenbaum scissors and a bladder flap created digitally. The bladder blade was then reinserted and the lower uterine segment incised in a transverse fashion with the scalpel. The uterine incision was then extended bluntly. The bladder blade was removed and the 's head was delivered from cephalic presentation atraumatically. The nose and mouth were suctioned and the cord doubly clamped and cut. And the was handed off to waiting pediatricians. The placenta was then delivered manully and the uterus exteriorized and cleared of all clots and debris. The uterine incision was then repaired with 1-0 Vicryl in a running locked fashion. A second layer of the same suture was used to obtain hemostasis via imbrication of the initial layer. The uterus was returned to the patient's abdomen. The gutters were cleared of all clots and debris. All operative sites were noted to be hemostatic. The fascia was reapproximated with 0 Vicryl in a running fashion from each lateral edge to the midline. The patient tolerated the procedure well. Sponge lap needle and instrument counts are correct -2. 2 g of Ancef were given prior to skin incision. The patient was taken to the recovery area awake and in stable condition.
[2019-10-22] MEDS ORDERED: OXYTOCIN/0.9 % SODIUM CHLORIDE 30 UNIT/500 ML RTUINJ ONE ×2 (11:41→21:06)
[2019-10-22] MEDS ORDERED: BUPIVACAINE HCL 0.25 % INJ/PF (2.5 MG/1 ML) 30 ML VIAL ONE (11:50)
[2019-10-22] MEDS ORDERED: KETOROLAC TROMETHAMINE INJ/PF 30 MG/1 ML SDV ONE (12:50)
[2019-10-22] MEDS ORDERED: MORPHINE SULFATE 10 MG/ML INJ ONE (12:50)
[2019-10-22] MEDS ORDERED: ACETAMINOPHEN 1,000 MG/100 ML RTUPB IV ONE (13:07)
[2019-10-22] MEDS: KETOROLAC TROMETHAMINE INJ/PF 30 MG/1 ML SDV IV SCH ×2 (14:18→23:45)
[2019-10-22] MEDS: DOCUSATE SODIUM 100 MG CAPSULE PO SCH (18:54)
[2019-10-22] MEDS: OXYCODONE-ACETAMINOPHEN 5-325 MG TABLET PO PRN (19:18)
[2019-10-22] MEDS ORDERED: MISOPROSTOL 0.2 MG TABLET ONE (21:04)
[2019-10-22 22:11] LABS: HEMOGLOBIN 8.9 g/dL (12.0-15.5); MEAN CORPUSCULAR HEMOGLOBIN 22.2 pg (27.0-33.4); MEAN CORPUSCULAR HGB CONC 31.7 g/dL (32.0-36.0); MEAN CORPUSCULAR VOLUME 70 fl (80-97); PLATELET COUNT 145 10^3/uL (150-450); RED CELL DISTRIBUTION WIDTH 16.3 % (11.5-14.0); WHITE BLOOD COUNT 12.7 10^3/uL (4.0-10.5)
[2019-10-22] MEDS ORDERED: MISOPROSTOL 0.2 MG TABLET PR ONE (22:15)
[2019-10-22] MEDS ORDERED: OXYTOCIN/0.9 % SODIUM CHLORIDE 30 UNIT/500 ML RTUINJ IV ONE (22:15)
[2019-10-23] MEDS: OXYCODONE-ACETAMINOPHEN 5-325 MG TABLET PO PRN ×4 (03:46→20:53)
[2019-10-23] MEDS: KETOROLAC TROMETHAMINE INJ/PF 30 MG/1 ML SDV IV SCH ×3 (06:21→21:52)
[2019-10-23] MEDS: PRENATAL VITAMIN W DHA CAPSULE PO SCH (09:27)
[2019-10-23] MEDS: DOCUSATE SODIUM 100 MG CAPSULE PO SCH ×2 (09:27→18:14)
--- NOTE | 2019-10-23 09:47 | PDOC PROGRESS REPORT ---
Subjective-OB Progress Note for:: 10/23/19 Subjective: Doing well, feeling better, bleeding less, still has mason after PPH, Physical Exam (OB) Vital Signs: Temp Pulse Resp BP Pulse Ox 98.0 F 57 L 16 119/61 100 10/23/19 07:22 10/23/19 07:22 10/23/19 07:22 10/23/19 07:22 10/23/19 07:22 Intake & Output 10/22/19 10/23/19 10/24/19 06:59 06:59 06:59 Intake Total 1900 Output Total 4100 Balance -2200 Weight 82.554 kg 33.3 kg - PIH/Pre-Eclampsia Clonus: Negative Headache: Absent Epigastric Pain: No Visual Changes: No - Dressing Removed: No Incision: Dressing - Lochia Lochia Amount: Moderate 25-50 ml Lochia Color: Rubra/Red - Abdomen Description: Tender, Soft Hernia Present: No Fundal Description: Firm, Midline Fundal Height: u/u - u/2 Objective-Diagnostic Laboratory: 10/22/19 21:53 10/22/19 21:53 WBC 12.7 H RBC 4.00 Hgb 8.9 L Hct 28.0 L MCV 70 L MCH 22.2 L MCHC 31.7 L RDW 16.3 H Plt Count 145 L Assessment and Plan(PN) - Assessment and Plan (1) S/P repeat low transverse Is this a current diagnosis for this admission?: Yes (2) hemorrhage Qualifiers: hemorrhage type: unspecified Qualified Code(s): O72.1 - Other immediate hemorrhage Is this a current diagnosis for this admission?: Yes (3) Gestational diabetes Qualifiers: Gestational diabetes mellitus control: oral hypoglycemic-controlled Trimester: second trimester Qualified Code(s): O24.415 - Gestational diabetes mellitus in , controlled by oral hypoglycemic drugs Is this a current diagnosis for this admission?: Yes (4) Bipolar 1 disorder Is this a current diagnosis for this admission?: Yes - Time Spent with Patient Time with patient: Less than 15 minutes Medications reviewed and adjusted accordingly: Yes - Disposition Anticipated Discharge: Home Within: within 24 hours
[2019-10-23] MEDS: IBUPROFEN 800 MG TABLET PO SCH ×3 (11:56→23:52)
[2019-10-24] MEDS: IBUPROFEN 800 MG TABLET PO SCH (05:17)
[2019-10-24] MEDS: KETOROLAC TROMETHAMINE INJ/PF 30 MG/1 ML SDV IV SCH (05:19)
--- NOTE | 2019-10-24 09:10 | PDOC PROGRESS REPORT ---
Subjective-OB Progress Note for:: 10/24/19 Subjective: resting, no c/o, feeling better, ready to go home, eating, voiding, passing gas, bottle feeding Physical Exam (OB) Vital Signs: Temp Pulse Resp BP Pulse Ox 98.1 F 68 16 139/75 H 100 10/24/19 07:19 10/24/19 07:19 10/24/19 07:19 10/24/19 07:19 10/24/19 07:19 Intake & Output 10/23/19 10/24/19 10/25/19 06:59 06:59 06:59 Intake Total 1900 Output Total 4100 Balance -2200 Weight 33.3 kg - PIH/Pre-Eclampsia Clonus: Negative Headache: Absent Epigastric Pain: No Visual Changes: No - Dressing Removed: No Incision: Well Approximated Closure Type: Surgical Glue - Lochia Lochia Amount: Scant < 10 ml Lochia Color: Rubra/Red - Abdomen Description: Tender, Soft Hernia Present: No Fundal Description: Firm, Midline Fundal Height: u/u - u/2 Objective-Diagnostic Laboratory: 10/22/19 21:53 Assessment and Plan(PN) - Assessment and Plan (1) S/P repeat low transverse Is this a current diagnosis for this admission?: Yes (2) hemorrhage Qualifiers: hemorrhage type: unspecified Qualified Code(s): O72.1 - Other immediate hemorrhage Is this a current diagnosis for this admission?: Yes (3) Gestational diabetes Qualifiers: Gestational diabetes mellitus control: oral hypoglycemic-controlled Trimester: second trimester Qualified Code(s): O24.415 - Gestational diabetes mellitus in , controlled by oral hypoglycemic drugs Is this a current diagnosis for this admission?: Yes (4) Bipolar 1 disorder Is this a current diagnosis for this admission?: Yes - Time Spent with Patient Time with patient: Less than 15 minutes Medications reviewed and adjusted accordingly: Yes - Disposition Anticipated Discharge: Home Within: within 24 hours
--- NOTE | 2019-10-24 09:20 | PDOC DISCHARGE SUMMARY ---
Impression - Admit/DC Date/PCP Admission Date/Primary Care Provider: 10/22/19 04:27 PRANAV PEREZ MD Discharge Date: 10/24/19 - Discharge Diagnosis (1) S/P repeat low transverse Is this a current diagnosis for this admission?: Yes (2) hemorrhage Is this a current diagnosis for this admission?: Yes (3) Gestational diabetes Is this a current diagnosis for this admission?: Yes (4) Bipolar 1 disorder Is this a current diagnosis for this admission?: Yes - Additional Information Resuscitation Status: Full Code Discharge Diet: As Tolerated, Regular Discharge Activity: No Lifting Over 10 Pounds, Pelvic Rest, No tub bath Referrals: PRANAV PEREZ MD [Primary Care Provider] - (RTC 1 week) Prescriptions: Oxycodone HCl/Acetaminophen [Percocet 5-325 mg Tablet] 7 tab PO Q4HP PRN #20 tablet PRN Reason: Ibuprofen [Motrin 800 mg Tablet] 800 mg PO Q6 #30 tablet Home Medications: 118/Iron/Folate 6/Dha [[facility] Softgel] 1 each PO DAILY #60 capsule 04/24/19 Iron 325 mg PO BID 10/22/19 Ibuprofen [Motrin 800 mg Tablet] 800 mg PO Q6 #30 tablet 10/24/19 Oxycodone HCl/Acetaminophen [Percocet 5-325 mg Tablet] 7 tab PO Q4HP PRN #20 tablet 10/24/19 HPI Gestational Age: 37 Reason(s) for Admission: Ceasarean Section-Repeat Procedures: Ultrasound Intrapartum Procedure(s): : Low Cervical, Transverse Hospital Course Hospital Course: post hemorrhage Results Laboratory Results: WBC 12.7 10^3/uL (4.0-10.5) H 10/22/19 21:53 RBC 4.00 10^6/uL (3.72-5.28) 10/22/19 21:53 Hgb 8.9 g/dL (12.0-15.5) L 10/22/19 21:53 Hct 28.0 % (36.0-47.0) L 10/22/19 21:53 MCV 70 fl (80-97) L 10/22/19 21:53 MCH 22.2 pg (27.0-33.4) L 10/22/19 21:53 MCHC 31.7 g/dL (32.0-36.0) L 10/22/19 21:53 RDW 16.3 % (11.5-14.0) H 10/22/19 21:53 Plt Count 145 10^3/uL (150-450) L 10/22/19 21:53 Lymph % (Auto) 26.3 % (13-45) 10/22/19 05:30 [place] % (Auto) 13.4 % (3-13) H 10/22/19 05:30 Eos % (Auto) 2.0 % (0-6) 10/22/19 05:30 Baso % (Auto) 0.2 % (0-2) 10/22/19 05:30 Absolute Neuts (auto) 6.4 10^3/uL (1.7-8.2) 10/22/19 05:30 Absolute Lymphs (auto) 2.9 10^3/uL (0.5-4.7) 10/22/19 05:30 Absolute Monos (auto) 1.5 10^3/uL (0.1-1.4) H 10/22/19 05:30 Absolute Eos (auto) 0.2 10^3/uL (0.0-0.6) 10/22/19 05:30 Absolute Basos (auto) 0.0 10^3/uL (0.0-0.2) 10/22/19 05:30 Seg Neutrophils % 58.1 % (42-78) 10/22/19 05:30 Urine Color YELLOW 10/22/19 04:49 Urine Appearance SLIGHTLY-CLOUDY 10/22/19 04:49 Urine pH 6.0 (5.0-9.0) 10/22/19 04:49 Ur Specific [place] 1.014 10/22/19 04:49 Urine Protein NEGATIVE mg/dL (NEGATIVE) 10/22/19 04:49 Urine Glucose (UA) NEGATIVE mg/dL (NEGATIVE) 10/22/19 04:49 Urine Ketones NEGATIVE mg/dL (NEGATIVE) 10/22/19 04:49 Urine Blood MODERATE (NEGATIVE) H 10/22/19 04:49 Urine Nitrite NEGATIVE (NEGATIVE) 10/22/19 04:49 Urine Bilirubin NEGATIVE (NEGATIVE) 10/22/19 04:49 Urine Urobilinogen NEGATIVE mg/dL (<2.0) 10/22/19 04:49 Ur Leukocyte Esterase NEGATIVE (NEGATIVE) 10/22/19 04:49 Urine WBC (Auto) 5 /HPF 10/22/19 04:49 Urine RBC (Auto) 11 /HPF 10/22/19 04:49 U Hyaline Cast (Auto) 1 /LPF 10/22/19 04:49 Squamous Epi Cells Auto 8 /HPF 10/22/19 04:49 Urine Mucus (Auto) OCC /LPF 10/22/19 04:49 Urine Ascorbic Acid NEGATIVE (NEGATIVE) 10/22/19 04:49 Urine Opiates Screen NEGATIVE 10/22/19 04:49 Urine Methadone Screen NEGATIVE 10/22/19 04:49 Ur Barbiturates Screen NEGATIVE 10/22/19 04:49 Ur Phencyclidine Scrn NEGATIVE 10/22/19 04:49 Ur Amphetamines Screen NEGATIVE 10/22/19 04:49 U Benzodiazepines Scrn NEGATIVE 10/22/19 04:49 Urine Cocaine Screen NEGATIVE 10/22/19 04:49 U Marijuana (THC) Screen UNCONFIRMED POSITIVE 10/22/19 04:49 COVID-19 Source NASOPHARYNGEAL 10/15/19 14:25 COVID-19 ([facility]) NOT DETECTED 10/15/19 14:25 Blood Type A POSITIVE 10/22/19 05:30 Antibody Screen NEGATIVE 10/22/19 05:30 Plan Health Concerns: anemia, mental health status Plan of Treatment: d/c home, rev S&S to report, f/u with provider for meds if needed Goals: no complications, rtc 1 week Time Spent: Less than 30 Minutes
[2019-10-24] MEDS: PRENATAL VITAMIN W DHA CAPSULE PO SCH (09:46)
[2019-10-24] MEDS: DOCUSATE SODIUM 100 MG CAPSULE PO SCH (09:46)
[2019-10-24 11:40] VITALS: BP 137/83
== END 2019-10-24 13:05 | disposition home or self-care (01) | DRG 787 ==
LOC: 2S 04:27
PROVIDERS: ADMIT Obstetrics & Gynecology Gynecology; ATTEND Obstetrics & Gynecology Gynecology
PROC: 10D00Z1 Extraction of Products of Conception, Low, Open Approach (ICD-10-PCS; principal; 2019-10-22)
DX: O24.425 Gestational diabetes mellitus in childbirth, controlled by oral hypoglycemic drugs (principal); O72.1 Other immediate postpartum hemorrhage; O34.211 Maternal care for low transverse scar from previous cesarean delivery; O99.344 Other mental disorders complicating childbirth; F31.9 Bipolar disorder, unspecified; Z87.891 Personal history of nicotine dependence; Z83.3 Family history of diabetes mellitus; Z81.8 Family history of other mental and behavioral disorders; Z3A.39 39 weeks gestation of pregnancy; Z37.0 Single live birth
CPT/HCPCS: 1961; 36415; 59025; 64450; 76942; 80307; 81001; 85025; 86850; 86900; 86901; 87635; 94760; 94799; C9803; J0131; J0690; J1885; J2250; J2270; J2405; J2590; J3490; J7120